=== PATIENT | male | born 1930 | race Caucasian/White ===

== ENCOUNTER 2017-09-02 16:05 | Emergency (ER) | payer MEDICARE, OTHER ==
[~2017-09-02] VITALS: Ht 185.4 cm; Wt 99.8 kg
[~2017-09-02 16:05] MED LIST: ACCUNEB; ACCUNEB SO1.25 MG/1 INH; ACCUNEB0.63 MG/3 IH; ACETAMINOPHEN-1 EAC1 PO; ALBUTEROL SULFATE INH; ALLEGRA180 MG PO; ARIXTRA; AZELASTINE137 MCG/0. NS; BIOFLEX TABLET1 EACH PO; CARDIZEM CD120 MG PO; CELEBREX 200 M200 M1; CENTRUM SILVER1 EAC2 PO; CIPRO500 MG PO; CLEOCIN HCL150 MG PO; CLEOCIN HCL300 MG PO; CO Q-1010 MG PO; COLACE 100 MG100 MG PO; COLACE100 MG; COQ-10100 MG PO; COUMADIN 4 MG TA4 M1 PO; COUMADIN 5 MG TA5 M1 PO; DEXILANT60 MG PO; DOXYCYCLINE 10100 M1 PO; DUONEB 2.5-0.5 M3 ML INH; FLAGYL500 MG PO; FLONASE 0.05%50 MCG NASAL; GLUCOSAMINE &1 EAC1 PO; HYDROCODONE-AP1 EAC6 PO; JANTOVEN7.5 MG PO; KEFLEX500 MG PO; KEPPRA 500 MG500 M1 PO; LANOXIN 0.250.25 M1 PO; LASIX 20 MG TAB20 MG PO; LEVAQUIN 500 M500 M2 PO; LISINOPRIL2.5 MG PO; MEDROLDOSEPACK PO; MUCINEX TA600 MG/TA1 PO; MUCINEX600 MG PO; NEURONTIN 300300 M1; NORCO 5-325 TA1 EACH PO; OSTEO BI-FLEX1 EAC1 PO; OXYCODONE HCL5 M1; OXYIR5 MG; PATANASE30.5 GM INH; PERCOCET 5-3251 EACH; POTASSIUM20 PO; PREDNISONE 10 M10 M1; PREDNISONE 20 M20 M1 PO; PREDNISONE 5 MG5 MG PO; PREDNISONE50 MG PO; PRILOSEC 20 MG20 MG PO; PROVENTIL HFA6.7 G1; PROVENTIL HFA6.7 G1 INH; RESVERATROL250 MG PO; SINGULAIR 10 MG10 M1 PO; SYMBICORT160 MCG/4. INH; TOBRADEX ST EYE5 ML OP; VENTOLIN HFA 1818 GM INH; VENTOLIN HFA INH8 GM INH; VITAMIN B COMP1 EAC7 PO; VITAMIN B-12500 MCG PO; ZANTAC 150MG T150 MG PO; ZOCOR 20 MG TAB20 M1 PO; ZOFRAN ODT4 MG PO; ZPAK PO; [UNRECOGNIZED DRUG - CODE] PO
[2017-09-02] MEDS ORDERED: DOXYCYCLINE 10100 M1 PO (16:37)
[2017-09-02] MEDS ORDERED: VENTOLIN HFA 1818 GM INH (16:38)
[2017-09-02 17:59] LABS: INFLUENZA A ANTIGEN None Detected (None Detect); INFLUENZA B ANTIGEN None Detected (None Detect)
[2017-09-02 18:34] VITALS: BP 144/61
== END 2017-09-02 18:36 | disposition home or self-care (01) ==
LOC: M.ERS 16:05
PROVIDERS: Physician Assistant
DX: R09.82 Postnasal drip (principal); R05 Cough; J02.9 Acute pharyngitis, unspecified; K21.9 Gastro-esophageal reflux disease without esophagitis; I48.91 Unspecified atrial fibrillation; E78.5 Hyperlipidemia, unspecified; E11.9 Type 2 diabetes mellitus without complications; J44.9 Chronic obstructive pulmonary disease, unspecified; Z90.49 Acquired absence of other specified parts of digestive tract; Z88.0 Allergy status to penicillin; Z87.891 Personal history of nicotine dependence

== ENCOUNTER → 2017-10-11 | Outpatient (CLI) | payer MEDICARE, OTHER ==
[~2017-10-11] MED LIST changes: +COZAAR 25 MG TA25 M1 PO
[2017-10-11 12:16] LABS: HEMATOCRIT 44.8 % (42.0-52.0); HEMOGLOBIN 15.4 gm/dL (14.0-18.0); MCH 30.4 pg (26.0-34.0); MCHC 34.4 g/dL (28.0-37.0); MCV 88.3 fL (80.0-100.0); NUCLEATED RBCS 0 /100WBC; PLATELET COUNT* 148 thou/uL (150-400); RBC 5.07 mil/uL (4.50-6.00); RDW-CV 14.9 % (10.5-14.5); WBC 9.7 thou/uL (4.0-11.0)
[2017-10-11 12:24] LABS: CALCIUM 8.5 mg/dL (8.5-10.1); CREATININE 0.8 mg/dL (0.6-1.3); POTASSIUM 4.1 mmol/L (3.5-5.1)
[2017-10-11 12:32] LABS: ABSOLUTE BASOPHILS 0.2 thou/uL (0.0-0.2); ABSOLUTE EOSINOPHILS 0.2 thou/uL (0.0-0.7); ABSOLUTE LYMPHOCYTES 0.6 thou/uL (0.8-5.3); ABSOLUTE MONOCYTES 0.9 thou/uL (0.0-1.2); ABSOLUTE NEUTROPHILS 7.9 thou/uL (1.6-8.1); ATYPICAL LYMPHS 1 %
[2017-10-11 12:33] LABS: HYPOCHROMASIA 1+
[2017-10-11 12:34] LABS: ALBUMIN 3.5 g/dL (3.4-5.0); TOTAL BILIRUBIN 0.8 mg/dL (<0.1-1.0); TOTAL PROTEIN 6.9 g/dL (6.4-8.2)
[2017-10-11 12:36] LABS: PLATELET ESTIMATE DECREASED
== END ==
LOC: M.CT 11:30
PROVIDERS: Family Medicine
DX: K57.30 Diverticulosis of large intestine without perforation or abscess without bleeding (principal); R16.1 Splenomegaly, not elsewhere classified; N28.1 Cyst of kidney, acquired; M41.86 Other forms of scoliosis, lumbar region; M47.896 Other spondylosis, lumbar region; E87.1 Hypo-osmolality and hyponatremia; Z90.49 Acquired absence of other specified parts of digestive tract

== ENCOUNTER 2017-11-17 10:50 | Emergency (ER) | payer MEDICARE, OTHER ==
[~2017-11-17] VITALS: Ht 185.4 cm; Wt 99.8 kg
[~2017-11-17 10:50] MED LIST changes: -COZAAR 25 MG TA25 M1 PO
[2017-11-17 11:42] LABS: HEMATOCRIT 44.5 % (42.0-52.0); HEMOGLOBIN 15.2 gm/dL (14.0-18.0); MCH 30.3 pg (26.0-34.0); MCHC 34.1 g/dL (28.0-37.0); MCV 88.7 fL (80.0-100.0); MPV 7.2 fl. (7.2-11.1); NUCLEATED RBCS 0 /100WBC; PLATELET COUNT* 128 thou/uL (150-400); RBC 5.01 mil/uL (4.50-6.00); RDW-CV 14.9 % (10.5-14.5); WBC 8.3 thou/uL (4.0-11.0)
[2017-11-17 11:54] LABS: CALCIUM 9.1 mg/dL (8.5-10.1); CREATININE 0.9 mg/dL (0.6-1.3); POTASSIUM 4.1 mmol/L (3.5-5.1)
[2017-11-17 12:03] LABS: ALBUMIN 3.6 g/dL (3.4-5.0); TOTAL BILIRUBIN 1.1 mg/dL (<0.1-1.0); TOTAL PROTEIN 6.8 g/dL (6.4-8.2)
[2017-11-17 12:04] LABS: ABSOLUTE BASOPHILS 0.1 thou/uL (0.0-0.2); ABSOLUTE EOSINOPHILS 0.2 thou/uL (0.0-0.7); ABSOLUTE MONOCYTES 0.6 thou/uL (0.0-1.2); ABSOLUTE NEUTROPHILS 6.5 thou/uL (1.6-8.1)
[2017-11-17 12:05] LABS: PLATELET ESTIMATE ADEQUATE
[2017-11-17] MEDS ORDERED: CLEOCIN HCL150 MG PO (12:13)
[2017-11-17 12:21] VITALS: BP 116/53
[2017-11-17 12:29] LABS: INR 2.9; PROTIME 27.9 Seconds (9.20-11.50)
== END 2017-11-17 12:22 | disposition home or self-care (01) ==
LOC: M.ERS 10:50
PROVIDERS: Nurse Practitioner Family
DX: M70.22 Olecranon bursitis, left elbow (principal); J44.9 Chronic obstructive pulmonary disease, unspecified; K21.9 Gastro-esophageal reflux disease without esophagitis; I48.91 Unspecified atrial fibrillation; E78.5 Hyperlipidemia, unspecified; E11.9 Type 2 diabetes mellitus without complications; Z96.653 Presence of artificial knee joint, bilateral; Z88.0 Allergy status to penicillin; Z87.891 Personal history of nicotine dependence; Y93.89 Activity, other specified

== ENCOUNTER 2017-11-20 10:30 | Inpatient (IN) | payer MEDICARE, OTHER ==
[~2017-11-20] VITALS: Ht 182.9 cm; Wt 99.8 kg
[2017-11-20 11:54] VITALS: BP 139/57
[2017-11-20] MEDS ORDERED: VENTOLIN HFA 1818 GM INH (11:56)
[2017-11-20] MEDS ORDERED: FLONASE 0.05%50 MCG NASAL (11:58)
[2017-11-20 12:07] LABS: HEMATOCRIT 42.3 % (42.0-52.0); HEMOGLOBIN 14.6 gm/dL (14.0-18.0); MCH 30.5 pg (26.0-34.0); MCHC 34.6 g/dL (28.0-37.0); MCV 88.1 fL (80.0-100.0); MPV 7.2 fl. (7.2-11.1); NUCLEATED RBCS 0 /100WBC; PLATELET COUNT* 138 thou/uL (150-400); RDW-CV 15.1 % (10.5-14.5); WBC 9.8 thou/uL (4.0-11.0)
[2017-11-20 12:14] LABS: INR 3.1; PROTIME 29.2 Seconds (9.20-11.50)
[2017-11-20 12:20] LABS: CALCIUM 8.3 mg/dL (8.5-10.1); CREATININE 0.8 mg/dL (0.6-1.3); POTASSIUM 4.1 mmol/L (3.5-5.1)
[2017-11-20 12:25] LABS: ALBUMIN 3.3 g/dL (3.4-5.0); TOTAL BILIRUBIN 1.2 mg/dL (<0.1-1.0); TOTAL PROTEIN 6.7 g/dL (6.4-8.2)
--- NOTE | 2017-11-20 12:29 | NUR ---
PATIENT DIRECTLY ADMITTED FROM DR. BRUNO'S OFFICE. PATIENT IS S/P MULTIPLE LEFT ELBOW ASPIRATIONS. PATIENT NOTICED INCREASE IN PAIN/SWELLING AFTER ASPIRATION THAT WAS COMPLETED IN ER ON SAT. ADMISSION HISTORY AND ASSESSMENT CHARTED. PAIN/SWELLING IN LEFT ELBOW. ELBOW DRESSING INTACT-PLACED BY DR. BRUNO JUST PRIOR TO ADMISSION. ORIENTED TO ROOM AND ENVIROMENT. WILL CONTINUE TO MONITOR.
[2017-11-20 12:55] LABS: ABSOLUTE LYMPHOCYTES 0.9 thou/uL (0.8-5.3); ABSOLUTE MONOCYTES 0.1 thou/uL (0.0-1.2); ABSOLUTE NEUTROPHILS 8.8 thou/uL (1.6-8.1)
[2017-11-20 12:56] LABS: ANISOCYTOSIS 1+; PLATELET ESTIMATE DECREASED; POIKILOCYTOSIS 1+
[2017-11-20 16:08] VITALS: BP 138/77
--- NOTE | 2017-11-20 16:27 | NUR ---
PATIENT REMAINS ALERT AND ORIENTED. PAIN IN LEFT ELBOW/WRIST CONTROLLED WITH FENTANYL. IVF INFUSING ORDERED. IV VANC STARTED. AMBULATES AD GISSEL. POST PROCEDURE DRESSING C/D/I. TOLERATING MEALS. ID CONSULTED. CALL LIGHT WITHIN REACH. WILL CONTINUE TO MONITOR.
[2017-11-20 21:20] VITALS: BP 149/74
[2017-11-21 04:05] LABS: ABSOLUTE EOSINOPHILS 0.1 thou/uL (0.0-0.7); ABSOLUTE LYMPHOCYTES 0.7 thou/uL (0.8-5.3); ABSOLUTE MONOCYTES 0.6 thou/uL (0.0-1.2); ABSOLUTE NEUTROPHILS 5.5 thou/uL (1.6-8.1); BASOPHILS 0.6 %; EOSINOPHILS 1.3 %; HEMOGLOBIN 13.9 gm/dL (14.0-18.0); LYMPHOCYTES 10.6 %; MCH 30.3 pg (26.0-34.0); MCHC 34.7 g/dL (28.0-37.0); MCV 87.2 fL (80.0-100.0); MPV 7.8 fl. (7.2-11.1); NUCLEATED RBCS 0 /100WBC; PLATELET COUNT* 127 thou/uL (150-400); POLYS 79.5 %; RBC 4.59 mil/uL (4.50-6.00); WBC 6.9 thou/uL (4.0-11.0)
[2017-11-21 04:11] LABS: ALBUMIN 2.9 g/dL (3.4-5.0); CALCIUM 8.1 mg/dL (8.5-10.1); CREATININE 0.7 mg/dL (0.6-1.3); POTASSIUM 3.9 mmol/L (3.5-5.1); TOTAL BILIRUBIN 0.9 mg/dL (<0.1-1.0); TOTAL PROTEIN 6.1 g/dL (6.4-8.2)
--- NOTE | 2017-11-21 04:49 | NUR ---
PATIENT HAS RESTED WELL THROUGHOUT THE NIGHT WITHOUT ANY ISSUES. PAIN WELL CONTROLLED. PATIENT IS UP WITH ASSIST X 2 WITH GAITBELT AND WALKER TO THE [facility]. DRESSING TO RIGHT KNEE IS C/D/I, AMY HOSE, POLAR CARE AND SCD'S IN PLACE. IV IN LEFT FOREARM-1/2 NS @ 75ML/HR. IV ABT GIVEN WITHOUT ANY ADVERSE SIDE EFFECTS NOTED. PATIENT REFUSED CPM BEFORE BEDTIME D/T WANTING TO GO TO SLEEP. WILL ATTEMPT TO PUT PATIENT ON CPM THIS AM. PATIENT INSTRUCTED TO USE CALL LIGHT WHEN NEEDING ASSISTANCE. HOURLY ROUNDS MADE. WILL CONTINUE WITH PLAN OF CARE AND NURSING TO MONITOR.
--- NOTE | 2017-11-21 04:57 | NUR ---
PATIENT HAS SLEPT ON AND OFF DURING THE NIGHT, BUT HAS BEEN SOMEWHAT RESTLESS. PAIN MEDICATION GIVEN ORDERED AND CHARTED. LEFT ARM/HAND IS SWOLLEN. ARM ELEVATED ON PILLOW AND ICE PACK GIVEN TO HELP WITH SWELLING AND PAIN. PATIENT IS UP AD-GISSEL AND STEADY. VSS ON RA. DRESSING TO LEFT ARM IN PLACE. IV IN RIGHT HAND-NS @ 50ML/HR. IV VANCO GIVEN WITHOUT ANY ADVERSE SIDE EFFECTS NOTED. PATIENT INSTRUCTED TO USE CALL LIGHT WHEN NEEDING ASSISTANCE. HOURLY ROUNDS MADE. WILL CONTINUE WITH PLAN OF CARE AND NURSING TO MONITOR.
[2017-11-21 08:05] VITALS: BP 141/75
--- NOTE | 2017-11-21 09:56 | CON ---
[address] [address] CONSULTATION Name: DAVIN CAAL SR Room: [address] ADM IN M.R.#: [id number] Admission: 11/20/17 Attend Phys: Shreyas Pires MD Discharge: Date of : 31 Report #: [id number] THIS REPORT FOR: //name// CC: Shreyas Matt DATE OF SERVICE: 11/20/2017 ORTHOPEDIC CONSULTATION HISTORY OF PRESENT ILLNESS: An 87-year-old gentleman who was seen in my office today and I called over to Dr. Pires to potentially admit him for septic bursa of his left elbow. This gentleman has been seen and followed in our office for several weeks. He has had increasing pain despite conservative care, measures and aspirations. The gentleman did go to the Emergency Room over the weekend and appropriately had some blood work done, aspirated a large amount of fluid from it at that stage and then last night or yesterday, saw my partner, Dr. Catalan again. He saw him for increasing pain and aspirated his elbow and he presented to my office again today with the same. The gentleman has been on some doxycycline. He feels like he is not getting any better. HE DOES HAVE AN ALLERGY TO PENICILLIN, IT CAUSES STIFF JOINTS; this is what he says primarily. He has a long medication list, it is included on the chart; and it is noted his medical history is numerous bronchitis, cellulitis, diabetes mellitus type 2 and COPD. He has a history of diverticulitis and he does have history of sore throat. 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 MEDICATIONS: This gentleman has had medications currently clindamycin actively and currently, he is on vancomycin. He is a chronic Coumadin therapy patient as well for atrial fibrillation. PAST SURGICAL HISTORY: He has had numerous surgeries. He has had angioplasty. He has had a CABG, testicular surgery, cholecystectomy, right and left hip and knee arthroplasties. SOCIAL HISTORY: This gentleman does exhibit socially. No smoke or alcohol consumption history. REVIEW OF SYMPTOMS: Musculoskeletal, he complains of discomfort in this left elbow region. Otherwise, his 10-point review is relatively benign. LABORATORY DATA: The patient does exhibit to show currently he has white blood cell count of 9800. He does have platelets of 138,000. His neutrophil count on the CBC was high at 8.8. Currently, that is [place] [address] CONSULTATION Name: DAVIN CAAL Room: [address]#: [id number] Admission: 11/20/17 Attend Phys: Shreyas Pires MD Discharge: Date of : 31 Report #: [id number] this early stage. PHYSICAL EXAMINATION: VITAL SIGNS: He does demonstrate his vitals to show the temperature of 36.4, BP 139/57, respiratory rate is 20 and his pulse is 68. GENERAL: A very pleasant 87-year-old gentleman. HEENT: He is normocephalic. His sclerae are white. Mucous membranes are moist. NEUROLOGIC: Appropriate affect and judgement does demonstrate. LUNGS: On his clinical presentation, he demonstrates no audible wheezes detected. ABDOMEN: Obese, soft. EXTREMITIES: He demonstrates left elbow has a bursal sac that is evident. There is warmth about this area. I did aspirate it in the office today. Those were sent down to the lab for cultures and gram stain. He demonstrates forearm tenderness as well as tenderness across his left wrist region. X-ray is pending on that and fingers move well in flexion and extension, but they do show some edema as well. He does demonstrate to show clinically otherwise, he does have no findings like this on the right arm. The radiograph in the office showed arthritis, but no destructive process changes. IMPRESSION: The patient's impression is consistent with septic olecranon bursitis of the left elbow region with remote possibility of sepsis. Appropriate blood cultures, antibiotics and aspiration evaluation will be done on this left elbow. I told him it is too early to tell if this will be a surgical or non-surgical type of problem that could go either way. He does understand these are very stubborn to help and get rid of, though. The patient is comfortable with the way outlined. He is very pleasant during our conversation this afternoon. It is my pleasure seeing and taking care of him. I will follow him. <ELECTRONICALLY SIGNED> By: Denilson Kaiser DO 11/21/17 0956 1323 1419Denilson Kaiser DO /sami
[2017-11-21 12:43] VITALS: BP 132/82
--- NOTE | 2017-11-21 14:40 | NUR ---
Agree with student nurse, Nicole Ordoñez's documentation
--- NOTE | 2017-11-21 14:43 | NUR ---
INFORMED DR. AVALOS OF MRI RESULTS.
[2017-11-21 15:08] LABS: INR 2.2; PROTIME 21.4 Seconds (9.20-11.50)
[2017-11-21 15:50] VITALS: BP 119/68
--- NOTE | 2017-11-21 17:50 | NUR ---
PATIENT REMAINS ALERT AND ORIENTED. ANXIOUS. UP AD GISSEL. LEFT ARM SWELLING DECREASED. ELEVATED ON MULTIPLE PILLOWS. DR. BRUNO REMOVED DRESSING. NO DRAINAGE. MRI COMPLETED. VANC AND DOXYCYCLINE GIVEN. BM THIS MORNING. ALTERNATING HYDROCODONE AND FENTANYL FOR ADEQUATE PAIN RELIEF. CALL LIGHT WITHIN REACH. WILL CONTINUE TO MONITOR.
[2017-11-21 19:45] VITALS: BP 129/63
--- NOTE | 2017-11-22 04:36 | NUR ---
PATIENT HAS REMAINED ALERT AND ORIENTED X 4 THROUGHOUT THE SHIFT AND RESTING AT INTERVALS. NOTED COUGH FOR 30 MINUTES AFTER HS BREATHING TREATMENT. PATIENT STATES THIS IS USUAL AT TIMES FOR HIM DUE TO HIS COPD. IV ANTIBIOTICS PER ORDERS. LEFT ARM REWRAPPED LOOSELY WITH GAUZE AND BO WRAP. PATIENT KEPT LEFT ARM ELEVATED OVERNIGHT. SOME IMPROVEMENT IN EDEMA AND PAIN THIS SHIFT. MEDICATED FOR PAIN X 3 OF THIS WRITING. VITAL SIGNS STABLE. CONTINUE TO MONITOR.
[2017-11-22 05:00] LABS: ABSOLUTE EOSINOPHILS 0.1 thou/uL (0.0-0.7); ABSOLUTE LYMPHOCYTES 0.8 thou/uL (0.8-5.3); ABSOLUTE MONOCYTES 0.7 thou/uL (0.0-1.2); ABSOLUTE NEUTROPHILS 6.3 thou/uL (1.6-8.1); BASOPHILS 0.6 %; EOSINOPHILS 1.5 %; HEMATOCRIT 37.9 % (42.0-52.0); HEMOGLOBIN 12.9 gm/dL (14.0-18.0); LYMPHOCYTES 10.3 %; MCH 29.9 pg (26.0-34.0); MCHC 34.1 g/dL (28.0-37.0); MCV 87.9 fL (80.0-100.0); MONOCYTES 9.3 %; MPV 8.2 fl. (7.2-11.1); NUCLEATED RBCS 0 /100WBC; PLATELET COUNT* 117 thou/uL (150-400); POLYS 78.3 %; RBC 4.31 mil/uL (4.50-6.00); RDW-CV 14.9 % (10.5-14.5)
[2017-11-22 05:14] LABS: ALBUMIN 2.8 g/dL (3.4-5.0); CALCIUM 7.6 mg/dL (8.5-10.1); CREATININE 0.8 mg/dL (0.6-1.3); POTASSIUM 3.9 mmol/L (3.5-5.1); TOTAL PROTEIN 5.3 g/dL (6.4-8.2)
[2017-11-22 08:00] VITALS: BP 145/75
[2017-11-22 08:17] LABS: INR 1.8; PROTIME 17.4 Seconds (9.20-11.50)
--- NOTE | 2017-11-22 10:51 | CON ---
[address] [address] CONSULTATION Name: DAVIN CAAL SR Room: [address] ADM IN M.R.#: [id number] Admission: 11/20/17 Attend Phys: Shreyas Pires MD Discharge: Date of : 31 Report #: [id number] THIS REPORT FOR: //name// CC: Shreyas Kaiser Kira Shaka DATE OF SERVICE: 11/21/2017 INFECTIOUS DISEASE CONSULTATION: ATTENDING PHYSICIAN: Shreyas Pires M.D. REASON FOR EVALUATION: Left upper extremity septic olecranon bursitis. HISTORY OF PRESENT ILLNESS: Chart reviewed, patient examined. 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 It was treated with corticosteroids and it improved; however, early to mid October had recurrence was evaluated in the Emergency Room did undergo aspiration of the site. Cultures are sterile thus far. He was given a course of antibiotics. However, in spite of that clinically worsened. Seen as an outpatient and was directed to admission. Throughout the most of the course of the illness, it was localized to the elbow however over the course of the last few days, it extended distally down the arm and the wrist between became severely painful has not had significant recent fevers. Did admit some chills as well as mild anorexia and pulmonary or gastrointestinal related complaints, not aware of any antecedent injury. Did an imaging of the elbow, show osteoarthritis involving the elbow joint, swelling of the olecranon bursa. Wrist x-ray, chondrocalcinosis degenerative arthrosis. MRI showed a large fluid collection extending along the posterior lateral aspect of the elbow into the forearm with surrounding soft tissue edema and cellulitis. There is question of a soft tissue infection with possible underlying abscess measuring 12 x 2.3 x 6.5 cm. There is a large joint effusion in the elbow with degenerative change. No acute bony abnormality. He was empirically started on vancomycin. On questioning, he denies any particular exposure history, does have several animals, does not believe he had any bites, [place], is not encephalopathic. ALLERGIES: PENICILLIN WHICH CAUSES STIFF JOINTS. CURRENT MEDICATIONS: Include fentanyl, hydrocodone, montelukast, vancomycin, atorvastatin, budesonide, albuterol, pantoprazole, and cyanocobalamin. PAST MEDICAL HISTORY: Bilateral total knee replacements, cholecystectomy, [place] [address] CONSULTATION Name: DAVIN CAAL SR Room: [address] IN ..#: [id number] Admission: 11/20/17 Attend Phys: Shreyas Pires MD Discharge: Date of : 31 Report #: [id number] known coronary artery disease with angioplasty or coronary bypass grafting 2 occasions, COPD, reflux, atrial fibrillation, hyperlipidemia, diabetes mellitus type 2. SOCIAL HISTORY: Former smoker. No ethanol. FAMILY HISTORY: Noncontributory. REVIEW OF SYSTEMS: As above. PHYSICAL EXAMINATION: GENERAL: In moderate distress secondary to the pain. He is quite tenuous with his left upper extremity, appears reasonably nourished. VITAL SIGNS: Temperature 97.5, pulse 66, respirations 14, blood pressure 132/82. SKIN: Warm, dry, no rashes. HEENT: Unremarkable. NECK: Supple. LUNGS: Diminished breath sounds. HEART: Regular. Borderline bradycardic, I do not appreciate a murmur. ABDOMEN: Soft, mildly distended. There are no peritoneal signs. EXTREMITIES: Left upper extremity is clear, moderate inflammatory signs noted to above the elbow distal to involve the wrist and hand and generalized swelling. There is quite a bit of tenderness over the olecranon. There is a contused area which presumably is a fresh blood in the bursa, extends posteriorly. RECTAL: Deferred. LABORATORY DATA: Cultures described from the elbow sterile thus far. There are some RBCs noted at that site, although no white cells. Blood cultures are sterile thus far. CRP elevated at 58.9. CBC: White count 6.9, H and H 13.9 and 40.0, platelets of 127. Electrolytes: Sodium 136, potassium 3.9, chloride 103, bicarbonate is 25, anion gap of 13, creatinine 0.7, glucose of 108. LFTs are unremarkable. Albumin of 2.9, total protein 6.1. Lactic acid 0.8. The isolation of the culture from the elbow dated 11/17/2017 showed WBC, lack of white cells and no organisms seen and this culture is sterile thus far. ASSESSMENT AND PLAN: Inflammatory process with a focal fluid collection involving the left forearm, it is somewhat puzzling, history of spontaneous collection of fluid either in the elbow joint proper perhaps the bursa and tapped 3 times there is no evidence of culture, it raises question of a noninfectious or an atypical organism. We will add tetracycline, perhaps do some serologies. Discussed with the orthopedic surgery, I think he will benefit from evacuation of the fluid as noted in MRI. It [place] [address] CONSULTATION Name: DAVIN CAAL Room: [address] IN .R.#: [id number] Admission: 11/20/17 Attend Phys: Shreyas Pires MD Discharge: Date of : 31 Report #: [id number] this was primary joint tissue or bursa or soft tissue. We will await pending results. <ELECTRONICALLY SIGNED> By: Yung Roman MD 11/22/17 1051 1417 1819Jotopher Roman MD /nt
--- NOTE | 2017-11-22 11:53 | NUR ---
LATE ENTRY FOR 11/21 1600-PT.SAID HE LIVES WITH HIS . HE IS NORMALLY INDEPENDENT AND ACTIVE AT HOME. HE HAS A WALKER FROM WHEN HE HAD HIS KNEES REPLACED. HE LOVES TO PLAY GOLF. HAS HX OF BUT CANT REMEMBER NAME OF AGENCY. HE WAS CONCERNED HIS DRMarlineHAD TOLD HIM HE WOULD COME BACK TO REWRAP HIS ARM AND HAS NOT. NURSING SAID THEY HAVE TOLD PT.MANY TIMES RESIDENT WILL BE BACK SOON TO RE WRAP HIS ARM. INFORMED PT. CM WILL FOLLOW.
--- NOTE | 2017-11-22 13:57 | NUR ---
CONSULTED FOR IV ACCESS. AFTER REVIEW OF THE CHART AND DISCUSSION WITH PRIMARY RN MIDLINE WAS CHOOSEN. SPOKE WITH PT REGUARDING RISK AND BENEFIT. VOICED UNDERSTANDING AND AGREED. SINGLE LUMAN PWER MIDLINE PLACED PER HOSPITAL POLICY. RIGHT BASILIC IDENTIFIED AND NOTED TO BE WIDLEY PATENT. LINE TRIMMED TO 15CM AND ADVANCED TO HUB. GOOD BRISK BLOOD RETURN NOTED AND FLUSHED WITH EASE. LINE SECURED AND RELEASED FOR USE. PRIMARY NURSING AWARE.
[2017-11-22 16:03] VITALS: BP 141/77
--- NOTE | 2017-11-22 18:18 | NUR ---
PATIENT REMAINED ALERT AND ORIENTED X'S 4. VITAL SIGNS AND SPO2 STABLE. IV WENT BAD, NEW IV COULD NOT BE STARTED, 15 CM MIDLINE IV PLACED ON RIGHT UPPER ARM. CLEAN, ANTIBIOTICS CURRENTLY RUNNING. PAIN WELL CONTROLLED WITH PAIN MEDS. REDRESSED LEFT ARM, 1+ EDEMA ON WRIST AND HAND. RECIEVED BREATHING TREATMENTS. SURGERY TOLD PATIENT THEY WILL NOT BE DOING SURGERY AT THE MOMENT, THEY WANT TO WATCH TO SEE IF THE ANTIBIOTICS WILL RESOLVE THE ISSUE. TOLERATED DIET, NO NAUSEA AND VOMITING. COMPLETED HOURLY ROUNDING. CALL LIGHT WITHIN REACH. WILL CONTINUE TO MONITOR.
[2017-11-22 20:00] VITALS: BP 143/56
[2017-11-23 04:51] LABS: INR 1.5; PROTIME 14.4 Seconds (9.20-11.50)
--- NOTE | 2017-11-23 05:12 | NUR ---
ASSUMED PATIENT CARE AT 2015. PATIENT ALERT AND ORIENTED TIMES FOUR. MACHINE CLEANER COMLETED DOCUMENTED. MINOR COMLAINTS OF PAIN, CONTROLLED WITH ORAL PAIN MEDICATION. ABLE TO TRANSFER TO [facility] WITH MOD ASSISST O ONE, GAIT BELT AND WALKER. FALL RISK PRECAUTIONS IN PLACE. POLAR PACK IN PLACE. HOURLY ROUNDING COMPLETED DOCUMENTED.
[2017-11-23 08:12] VITALS: BP 141/81
[2017-11-23 09:59] LABS: ABSOLUTE EOSINOPHILS 0.1 thou/uL (0.0-0.7); ABSOLUTE LYMPHOCYTES 0.5 thou/uL (0.8-5.3); ABSOLUTE MONOCYTES 0.3 thou/uL (0.0-1.2); ABSOLUTE NEUTROPHILS 4.2 thou/uL (1.6-8.1); BASOPHILS 0.9 %; EOSINOPHILS 1.9 %; HEMATOCRIT 38.5 % (42.0-52.0); HEMOGLOBIN 12.8 gm/dL (14.0-18.0); LYMPHOCYTES 8.9 %; MCH 29.9 pg (26.0-34.0); MCHC 33.3 g/dL (28.0-37.0); MCV 89.8 fL (80.0-100.0); MONOCYTES 6.5 %; MPV 7.6 fl. (7.2-11.1); NUCLEATED RBCS 0 /100WBC; PLATELET COUNT* 128 thou/uL (150-400); POLYS 81.8 %; RBC 4.29 mil/uL (4.50-6.00); RDW-CV 14.6 % (10.5-14.5); WBC 5.2 thou/uL (4.0-11.0)
[2017-11-23 10:10] LABS: ANA INTERPRETATION Negative (Negative)
[2017-11-23 10:45] LABS: ALBUMIN 2.8 g/dL (3.4-5.0); CALCIUM 8.3 mg/dL (8.5-10.1); CREATININE 0.8 mg/dL (0.6-1.3); TOTAL BILIRUBIN 0.7 mg/dL (<0.1-1.0); TOTAL PROTEIN 6.1 g/dL (6.4-8.2)
--- NOTE | 2017-11-23 15:52 | NUR ---
MET WITH PT. HE HOPES TO GO HOME SOON. PER 'S NOTE,PLAN TRANSITION TO ORAL ANTIBIOTICS. IF HH NEEDED PT.SAID HE WOULD BE AGREEABLE. HE WOULD CHOSE [facility].
[2017-11-23 16:00] VITALS: BP 143/77
--- NOTE | 2017-11-23 20:53 | NUR ---
ASSUMED PT CARES AT 0700. PT IN BED, BED IN LOW LOCKED POSITION, FALL PRECAUTIONS IN PLACE. CALL BUTTON AND PERSONAL ITEMS IN PT REACH. PT A&O X4, OCC. CONFUSED, HRRR PER AUSCULTATION, LCTAB, VSS ON RA. AFEBRILE, PERRLA, LEFT ARM SWOLLEN/PAINFUL. DR. BRUNO OFFICE CALLED R/T INCREASED EDEMA IN LEFT ARM. ARM REMAINS WRAPPED. PT UP INDEPENDENT, RIGHT UE CENTRAL LINE SINGLE LUMEN PATENT TO FLUIDS. IV ABT TOLERATED, NO AVR. ICE PACKS ON LEFT ARM, LEFT ARM RAISED ON PILLOWS, PT ENCOURAGED TO MOVE ARM MORE PER DR. BRUNO'S OFFICE. OXYCODONE SOMEWHAT EFFECTIVE FOR PAIN RELIEF. HOURLY ROUNDING COMPLETED. REPORT TO SUPERVISOR SANDBLASTER FOR CONTINUED CARES. PT REMAINS STABLE AT SHIFT CHANGE.
[2017-11-23 21:30] VITALS: BP 144/79
[2017-11-24 04:23] VITALS: BP 142/57
[2017-11-24 04:43] LABS: INR 1.3; PROTIME 12.2 Seconds (9.20-11.50)
[2017-11-24 04:44] LABS: CALCIUM 8.6 mg/dL (8.5-10.1); CREATININE 0.7 mg/dL (0.6-1.3); POTASSIUM 4.1 mmol/L (3.5-5.1); TOTAL BILIRUBIN 0.7 mg/dL (<0.1-1.0); TOTAL PROTEIN 6.3 g/dL (6.4-8.2)
[2017-11-24 05:01] LABS: HEMATOCRIT 37.9 % (42.0-52.0); HEMOGLOBIN 13.3 gm/dL (14.0-18.0); MCH 30.5 pg (26.0-34.0); MCV 87.2 fL (80.0-100.0); MPV 7.4 fl. (7.2-11.1); NUCLEATED RBCS 0 /100WBC; PLATELET COUNT* 140 thou/uL (150-400); RBC 4.35 mil/uL (4.50-6.00); RDW-CV 14.9 % (10.5-14.5); WBC 7.4 thou/uL (4.0-11.0)
--- NOTE | 2017-11-24 05:30 | NUR ---
ALERT AND ORIENTED X4. PO PAIN MEDICATION GIVEN AND HELPFUL FOR LEFT ARM PAIN. UP TO BATHROOM WITH STAND BY ASSIST. LEFT ARM AND HAND SWOLLEN. ELEVATED ON PILLOW. BO WRAP REMAINS INTACT OVER LEFT ARM. CONTINUES ON IV ANTIBIODICS. CALL LIGHT WITHIN REACH.
[2017-11-24 06:15] LABS: ABSOLUTE LYMPHOCYTES 0.5 thou/uL (0.8-5.3); ABSOLUTE MONOCYTES 0.1 thou/uL (0.0-1.2); ABSOLUTE NEUTROPHILS 6.8 thou/uL (1.6-8.1); ATYPICAL LYMPHS 1 %; PLATELET ESTIMATE DECREASED
[2017-11-24 08:11] VITALS: BP 158/84
[2017-11-24 16:00] VITALS: BP 138/75
--- NOTE | 2017-11-24 16:33 | NUR ---
ASSUMED CARE OF PATIENT ATER MORNING REPORT. ALERT AND ORIENTED X4. ASSESSMENT COMPLETED AND CHARTED. VSS ON ROOM AIR. ANTIBIOTICS INFUSED ORDERED. PATIENTS PAIN HAS BEEN MANAGED WITH PAIN MEDICATION. PATIENTS ARM HAS BEEN UNWRAPPED AND ELEVATED ON PILLOWS TODAY. PATIENT UP AD GISSEL IN ROOM AND WALKS THE UNIT OCCASIONALLY, HE HAS ALSO SHOWERED TODAY. ORTHO HAS ORDERED AN EDEMA GLOVE TO BE WORN BY THE PATIENT BUT HE WOULD PREFER NOT TO HAVE TO WEAR THIS. HOURLY ROUNDS HAVE BEEN MAINTAINED. CALL LIGHT IS WITHIN REACH. NURSING WILL CONTINUE TO MONITOR.
[2017-11-24 20:30] VITALS: BP 148/83
--- NOTE | 2017-11-25 04:34 | NUR ---
PATIENT HAS REMAINED ALERT AND ORIENTED X 4 THROUGHOUT THE SHIFT AND RESTING QUIETLY ON HOURLY ROUNDS. MIDLINE AT FULL FUNCTION AFTER CATH YOUSIF. IV ANTIBIOTICS PER ORDERS. VITAL SIGNS STABLE. PATIENT HAS STATED THAT PAIN AND EDEMA LEFT ARM IMPROVED. LUE HAS BEEN ELEVATED ON THREE PILLOWS TONIGHT. CONTINUE TO MONITOR.
[2017-11-25 05:35] LABS: ABSOLUTE BASOPHILS 0.1 thou/uL (0.0-0.2); ABSOLUTE EOSINOPHILS 0.1 thou/uL (0.0-0.7); ABSOLUTE LYMPHOCYTES 0.8 thou/uL (0.8-5.3); ABSOLUTE MONOCYTES 0.5 thou/uL (0.0-1.2); ABSOLUTE NEUTROPHILS 4.7 thou/uL (1.6-8.1); BASOPHILS 1.1 %; EOSINOPHILS 2.4 %; HEMATOCRIT 38.2 % (42.0-52.0); HEMOGLOBIN 12.9 gm/dL (14.0-18.0); LYMPHOCYTES 13.3 %; MCHC 33.7 g/dL (28.0-37.0); MCV 88.9 fL (80.0-100.0); MONOCYTES 7.8 %; MPV 6.9 fl. (7.2-11.1); NUCLEATED RBCS 0 /100WBC; PLATELET COUNT* 142 thou/uL (150-400); POLYS 75.4 %; RBC 4.29 mil/uL (4.50-6.00); RDW-CV 14.8 % (10.5-14.5); WBC 6.2 thou/uL (4.0-11.0)
[2017-11-25 05:56] LABS: ALBUMIN 2.9 g/dL (3.4-5.0); CALCIUM 8.4 mg/dL (8.5-10.1); CREATININE 0.8 mg/dL (0.6-1.3); POTASSIUM 4.1 mmol/L (3.5-5.1); TOTAL BILIRUBIN 0.6 mg/dL (<0.1-1.0); TOTAL PROTEIN 6.1 g/dL (6.4-8.2)
[2017-11-25 07:55] LABS: INR 1.2; PROTIME 11.9 Seconds (9.20-11.50)
[2017-11-25 09:00] VITALS: BP 138/71
--- NOTE | 2017-11-25 12:44 | NUR ---
ASSUMED PT CARE AT 0700 PT IS ALERT AND ORIENTED X 4 PT PT DENIES PAIN OR SOA PT LEFT ELBOW IS SWOLLEN RESTING ON PILLOW ELEVATED PT HAS MIDLINE IS RECEIVING ANTIBIOTICS, PT IS UP AD GISSEL PT IS NOT A FALL RISK, PT IS PLEASANT AND COOPERATIVE, WILL CONTINUE TO MONITOR
[2017-11-25 16:00] VITALS: BP 153/86
[2017-11-25 21:40] VITALS: BP 169/85
[2017-11-26 00:43] VITALS: BP 145/68
--- NOTE | 2017-11-26 04:57 | NUR ---
ALERT AND ORIENTED X4. UP AD GISSEL TO BATHROOM WITHOUT DIFFICULTY. CONTINUES TO RECEIVE IV ANTIBIODICS WITHOUT DIFFICULTY OR ADVERSE SIDE EFFECTS . RECEIVING BREATHING TREATMENTS. LEFT ARM AND HAND SWELLING HAS DECREASED ALOT OVER THE LAST COUPLE OF DAYS. PO PAIN MEDICATION GIVEN X1 AND HELPFUL.
[2017-11-26 05:49] LABS: INR 1.2; PROTIME 11.5 Seconds (9.20-11.50)
--- NOTE | 2017-11-26 07:15 | NUR ---
CHANGE OF SHIFT, BEDSIDE REPORT GIVEN ASSUMED PATIENT CARE PATIENT SEEN AT BEDSIDE, IN BED RESTING WITH NO REQUESTS
--- NOTE | 2017-11-26 07:58 | NUR ---
ORDER RECEIVED FOR "EVALUATE AND FIT WITH EDEMA GLOVE". PLEASE SEE PHYSICAL THERAPY NOTE. P.T. ISSUING.
[2017-11-26 08:00] VITALS: BP 141/68
[2017-11-26 12:46] VITALS: BP 141/68
--- NOTE | 2017-11-26 14:00 | NUR ---
PT.DISCHARGING TODAY. HAD TOLD THEY DID NOT WANT HH BUT CHANGED THEIR MINDS. THEY CHOSE [facility] . NOTIFIED JACK/[facility] AND FAXED DISCHARGE ORDERS TO HER.
--- NOTE | 2017-11-26 14:11 | NUR ---
PATIENT DCD TO HOME WITH H/H DC INFORMATION GIVEN AND ACKNOLEDGED AND SIGNED COPIES GIVEN IV MIDLINE REMOVED PERSONAL BELONGINGS RETURNED PATIENT ASSSITED OUT VIA WC TO WAITING CAR
== END 2017-11-26 14:16 | disposition home or self-care (01) | DRG 558 ==
LOC: M.ORTHSURG 10:30
PROVIDERS: Specialist; ADMIT Internal Medicine
PROC: 05HB33Z Insertion of Infusion Device into Right Basilic Vein, Percutaneous Approach (ICD-10-PCS; principal; 2017-11-20)
DX: M71.122 Other infective bursitis, left elbow (principal); R65.10 Systemic inflammatory response syndrome (SIRS) of non-infectious origin without acute organ dysfunction; E44.0 Moderate protein-calorie malnutrition; E87.1 Hypo-osmolality and hyponatremia; L03.114 Cellulitis of left upper limb; E86.0 Dehydration; Z96.653 Presence of artificial knee joint, bilateral; Z96.643 Presence of artificial hip joint, bilateral; I25.10 Atherosclerotic heart disease of native coronary artery without angina pectoris; J44.9 Chronic obstructive pulmonary disease, unspecified; K21.9 Gastro-esophageal reflux disease without esophagitis; S60.212A Contusion of left wrist, initial encounter; I48.91 Unspecified atrial fibrillation; E78.5 Hyperlipidemia, unspecified; E11.9 Type 2 diabetes mellitus without complications; Z87.891 Personal history of nicotine dependence; Z88.0 Allergy status to penicillin; Z79.01 Long term (current) use of anticoagulants; Z79.899 Other long term (current) drug therapy; X58.XXXA Exposure to other specified factors, initial encounter; Y93.89 Activity, other specified; Y92.89 Other specified places as the place of occurrence of the external cause; Y99.8 Other external cause status; Z95.1 Presence of aortocoronary bypass graft; Z90.49 Acquired absence of other specified parts of digestive tract; Z95.5 Presence of coronary angioplasty implant and graft; Z68.29 Body mass index [BMI] 29.0-29.9, adult

== ENCOUNTER → 2018-03-04 | Outpatient (CLI) | payer MEDICARE, OTHER ==
[~2018-03-04] MED LIST changes: +COZAAR 25 MG TA25 M1 PO
== END ==
LOC: M.RAD 10:43
DX: R05 Cough (principal); R06.02 Shortness of breath

== ENCOUNTER → 2018-04-23 | Outpatient (CLI) | payer MEDICARE, OTHER | LOC: M.RAD 10:40 | DX: M47.816 Spondylosis without myelopathy or radiculopathy, lumbar region (principal); J44.9 Chronic obstructive pulmonary disease, unspecified ==

== ENCOUNTER 2018-07-08 07:36 | Inpatient (IN) | payer MEDICARE, OTHER ==
[~2018-07-08] VITALS: Ht 185.4 cm; Wt 101.2 kg
[~2018-07-08 07:36] MED LIST changes: -COZAAR 25 MG TA25 M1 PO
[2018-07-08 07:40] VITALS: BP 174/95
[2018-07-08 08:37] LABS: ABSOLUTE BASOPHILS 0.1 thou/uL (0.0-0.2); ABSOLUTE EOSINOPHILS 0.1 thou/uL (0.0-0.7); ABSOLUTE LYMPHOCYTES 0.9 thou/uL (0.8-5.3); ABSOLUTE MONOCYTES 0.4 thou/uL (0.0-1.2); ABSOLUTE NEUTROPHILS 4.6 thou/uL (1.6-8.1); BASOPHILS 1.1 %; EOSINOPHILS 1.7 %; HEMATOCRIT 45.6 % (42.0-52.0); HEMOGLOBIN 15.2 gm/dL (14.0-18.0); LYMPHOCYTES 15.1 %; MCH 29.6 pg (26.0-34.0); MCHC 33.3 g/dL (28.0-37.0); MONOCYTES 6.1 %; MPV 7.9 fl. (7.2-11.1); NUCLEATED RBCS 0 /100WBC; PLATELET COUNT* 142 thou/uL (150-400); RBC 5.14 mil/uL (4.50-6.00); RDW-CV 14.8 % (10.5-14.5)
[2018-07-08 08:38] LABS: MCV 88.7 fL (80.0-100.0)
[2018-07-08 08:39] LABS: URINE BILIRUBIN NEGATIVE (Negative); URINE BLOOD NEGATIVE (Negative); URINE CLARITY CLEAR; URINE COLOR YELLOW; URINE GLUCOSE-RANDOM NEGATIVE (Negative); URINE KETONES NEGATIVE (Negative); URINE LEUKOCYTES-REFLEX NEGATIVE (Negative); URINE NITRITE-REFLEX NEGATIVE (Negative); URINE PROTEIN NEGATIVE (Negative); URINE SPECIFIC GRAVITY 1.015 (1.005-1.030); URINE UROBILINOGEN 0.2 E.U./dl (0.2-1.0)
[2018-07-08 08:50] LABS: WBC ND thou/uL (4.0-11.0)
[2018-07-08 08:51] LABS: RBC ND mil/uL (4.50-6.00)
[2018-07-08 08:52] LABS: ALBUMIN 3.7 g/dL (3.4-5.0); ALKALINE PHOSPHATASE 70 U/L (46-116); ANION GAP 7 mmol/L (7-16); BUN 11 mg/dL (7-18); CALCIUM 8.9 mg/dL (8.5-10.1); CHLORIDE 100 mmol/L (98-107); CO2 28 mmol/L (21-32); CREATININE 0.9 mg/dL (0.6-1.3); GLUCOSE 117 mg/dL (70-99); NT-PRO BRAIN NAT PEPTIDE 456 pg/mL (<300); SGOT 27 U/L (15-37); SGPT 32 U/L (30-65); SODIUM 135 mmol/L (136-145); TOTAL BILIRUBIN 0.7 mg/dL (<0.1-1.0); TROPONIN-I LEVEL <0.06 ng/mL (<0.06)
[2018-07-08 08:52] LABS: HEMOGLOBIN ND gm/dL (14.0-18.0)
[2018-07-08 08:53] LABS: HEMATOCRIT ND % (42.0-52.0)
[2018-07-08 08:57] LABS: MCH ND pg (26.0-34.0); MCV ND fL (80.0-100.0)
[2018-07-08 08:58] LABS: MCHC ND g/dL (28.0-37.0)
[2018-07-08 08:59] LABS: RDW-CV ND % (10.5-14.5)
[2018-07-08 09:00] LABS: MPV ND fl. (7.2-11.1); PLATELET COUNT* ND thou/uL (150-400)
[2018-07-08 09:01] LABS: POLYS ND %
[2018-07-08 09:02] LABS: LYMPHOCYTES ND %; MONOCYTES ND %
[2018-07-08 09:03] LABS: EOSINOPHILS ND %
[2018-07-08 09:04] LABS: ABSOLUTE LYMPHOCYTES ND thou/uL (0.8-5.3); ABSOLUTE NEUTROPHILS ND thou/uL (1.6-8.1); BASOPHILS ND %
[2018-07-08 09:05] LABS: ABSOLUTE EOSINOPHILS ND thou/uL (0.0-0.7); ABSOLUTE MONOCYTES ND thou/uL (0.0-1.2)
[2018-07-08 09:06] LABS: ABSOLUTE BASOPHILS ND thou/uL (0.0-0.2); NUCLEATED RBCS ND /100WBC
[2018-07-08 09:20] LABS: APTT 37.9 Seconds (25.0-31.3); INR 2.3; PROTIME 23.9 Seconds (9.20-11.50)
[2018-07-08 15:00] VITALS: BP 146/66
[2018-07-08 15:20] VITALS: BP 150/76
[2018-07-08 20:00] VITALS: BP 175/88
[2018-07-09] VITALS: BP 140/88
[2018-07-09 04:00] VITALS: BP 134/72
[2018-07-09 05:23] LABS: HEMATOCRIT 44.5 % (42.0-52.0); HEMOGLOBIN 15.2 gm/dL (14.0-18.0); MCH 30.4 pg (26.0-34.0); MCHC 34.2 g/dL (28.0-37.0); MCV 88.7 fL (80.0-100.0); MPV 7.5 fl. (7.2-11.1); RBC 5.01 mil/uL (4.50-6.00); RDW-CV 14.7 % (10.5-14.5); WBC 6.1 thou/uL (4.0-11.0)
[2018-07-09 05:41] LABS: INR 2.1; PROTIME 21.3 Seconds (9.20-11.50)
[2018-07-09 06:11] LABS: ALBUMIN 3.6 g/dL (3.4-5.0); CALCIUM 8.8 mg/dL (8.5-10.1); CREATININE 0.8 mg/dL (0.6-1.3); PHOSPHORUS* 2.8 mg/dL (2.5-4.9); TOTAL BILIRUBIN 0.8 mg/dL (<0.1-1.0); TOTAL PROTEIN 6.7 g/dL (6.4-8.2)
[2018-07-09 08:00] VITALS: BP 170/96
[2018-07-09 09:49] VITALS: BP 170/96
--- NOTE | 2018-07-09 11:19 | EKG ---
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: : 1930 Requested By: Cheryl Monahan Order Number: [id number] Reading MD: Eddie Armas Measurements Intervals [place] Rate: 63 P: [place]: QRS: 30 QRSD: 141 T: 18 QT: 433 QTc: 444 Interpretive Statements Atrial fibrillation Right bundle branch block Compared to ECG 05/04/2017 14:16:31 Right bundle-branch block now present Electronically Signed On 07-09-2018 11:19:07 EXTRUSION ENGINEER by Eddie Armas [email or web address] <ELECTRONICALLY SIGNED> By: Eddie Armas MD, FAC 07/09/18 1119 0742 0742 Eddie Armas MD, [facility] /EPI
[2018-07-09 11:24] VITALS: BP 150/75
[2018-07-09] MEDS ORDERED: COZAAR 25 MG TA25 M1 PO (12:35)
== END 2018-07-09 13:00 | disposition home health service (06) | DRG 309 ==
LOC: M.ERS 07:36 → M.TBA-ER 10:10 → M.2W 10:10
PROVIDERS: Personal Emergency Response Attendant; ADMIT Internal Medicine
DX: I48.0 Paroxysmal atrial fibrillation (principal); D68.59 Other primary thrombophilia; I16.0 Hypertensive urgency; I25.10 Atherosclerotic heart disease of native coronary artery without angina pectoris; I87.2 Venous insufficiency (chronic) (peripheral); K21.9 Gastro-esophageal reflux disease without esophagitis; T50.905A Adverse effect of unspecified drugs, medicaments and biological substances, initial encounter; E78.5 Hyperlipidemia, unspecified; E11.9 Type 2 diabetes mellitus without complications; J44.9 Chronic obstructive pulmonary disease, unspecified; Z96.653 Presence of artificial knee joint, bilateral; Z79.01 Long term (current) use of anticoagulants; Z85.828 Personal history of other malignant neoplasm of skin; Z90.49 Acquired absence of other specified parts of digestive tract; Z79.899 Other long term (current) drug therapy; Z88.0 Allergy status to penicillin; Z91.14 Patient's other noncompliance with medication regimen; Z87.891 Personal history of nicotine dependence; Z95.5 Presence of coronary angioplasty implant and graft; Y92.89 Other specified places as the place of occurrence of the external cause

== ENCOUNTER → 2018-11-06 | Outpatient (CLI) | payer MEDICARE, OTHER ==
[~2018-11-06] MED LIST changes: +COZAAR 25 MG TA25 M1 PO
== END ==
LOC: M.RAD 15:21
DX: J43.9 Emphysema, unspecified (principal); R09.89 Other specified symptoms and signs involving the circulatory and respiratory systems

== ENCOUNTER 2018-12-21 16:23 | Emergency (ER) | payer MEDICARE, OTHER ==
[~2018-12-21] VITALS: Ht 185.4 cm; Wt 104.3 kg
[~2018-12-21 16:23] MED LIST changes: +COUMADIN7.5 MG PO
[2018-12-21 17:11] LABS: ABSOLUTE BASOPHILS 0.1 thou/uL (0.0-0.2); ABSOLUTE EOSINOPHILS 0.1 thou/uL (0.0-0.7); ABSOLUTE LYMPHOCYTES 0.8 thou/uL (0.8-5.3); ABSOLUTE MONOCYTES 0.3 thou/uL (0.0-1.2); ABSOLUTE NEUTROPHILS 6.2 thou/uL (1.6-8.1); BASOPHILS 1.3 %; EOSINOPHILS 1.2 %; HEMATOCRIT 41.1 % (42.0-52.0); HEMOGLOBIN 14.2 gm/dL (14.0-18.0); LYMPHOCYTES 10.8 %; MCH 30.4 pg (26.0-34.0); MCHC 34.4 g/dL (28.0-37.0); MCV 88.3 fL (80.0-100.0); MONOCYTES 4.2 %; MPV 6.9 fl. (7.2-11.1); NUCLEATED RBCS 0 /100WBC; PLATELET COUNT* 109 thou/uL (150-400); POLYS 82.5 %; RBC 4.66 mil/uL (4.50-6.00); RDW-CV 15.1 % (10.5-14.5); WBC 7.5 thou/uL (4.0-11.0)
[2018-12-21 17:28] LABS: ALBUMIN 3.2 g/dL (3.4-5.0); CALCIUM 8.7 mg/dL (8.5-10.1); CREATININE 0.9 mg/dL (0.6-1.3); POTASSIUM 4.2 mmol/L (3.5-5.1); TOTAL BILIRUBIN 0.7 mg/dL (<0.1-1.0); TOTAL PROTEIN 6.1 g/dL (6.4-8.2)
[2018-12-21 17:39] LABS: INR 2.6; PROTIME 26.2 Seconds (9.20-11.50)
[2018-12-21] MEDS ORDERED: PREDNISONE 20 M20 MG PO (18:48)
[2018-12-21 19:01] VITALS: BP 110/70
== END 2018-12-21 19:01 | disposition home or self-care (01) ==
LOC: M.ERS 16:23
PROVIDERS: Nurse Practitioner Family
DX: J44.1 Chronic obstructive pulmonary disease with (acute) exacerbation (principal); I10 Essential (primary) hypertension; K21.9 Gastro-esophageal reflux disease without esophagitis; I48.91 Unspecified atrial fibrillation; E78.5 Hyperlipidemia, unspecified; E11.9 Type 2 diabetes mellitus without complications; Z87.891 Personal history of nicotine dependence; Z88.0 Allergy status to penicillin; Z96.653 Presence of artificial knee joint, bilateral; Z90.49 Acquired absence of other specified parts of digestive tract

== ENCOUNTER → 2019-01-22 | Outpatient (CLI) | payer MEDICARE, OTHER ==
[~2019-01-22] MED LIST changes: +PREDNISONE 20 M20 MG PO
== END ==
LOC: M.RAD 12:20
DX: J98.6 Disorders of diaphragm (principal); R06.2 Wheezing; R05 Cough

== ENCOUNTER → 2019-02-03 | Outpatient (CLI) | payer MEDICARE, OTHER | LOC: M.ULTRA 13:00 | DX: R60.0 Localized edema (principal) ==

== ENCOUNTER → 2019-04-15 | Outpatient (CLI) | payer MEDICARE, OTHER ==
--- NOTE | 2019-04-15 12:03 | 2DMMODE ---
[place] [address] 2 D/M-MODE ECHOCARDIOGRAM Name: DAVIN CAAL Room: [facility]#: [id number] Admission: 04/15/19 Attend Phys: David Manning, Discharge: Date of : 32 Date of Service: 04/15/19 1203 Report #: [id number] THIS REPORT FOR: //name// APPROVED REPORT Study performed: 04/15/2019 10:37:32 EXAM: Comprehensive 2D, Doppler, and color-flow Echocardiogram Patient Location: Out-Patient BSA: 2.31 HR: 54 bpm BP: 130/85 mmHg Other Information Study Quality: Good Indications Atrial Fibrillation CAD 2D Dimensions IVSd: 12.09 (7-11mm) LVOT Diam: 20.45 (18-24mm) LVDd: 43.39 mm PWd: 10.75 (7-11mm) Ascending Ao: 36.49 (22-36mm) LVDs: 31.63 (25-40mm) Aortic Root: 29.25 mm Volumes Left Atrial Volume (Systole) LA ESV Index: 28.00 mL/m2 Aortic Valve AoV Peak Roshan.: 1.53 m/s AO Peak Gr.: 9.37 mmHg LVOT Max P.84 mmHg AO Mean Gr.: 4.67 mmHg LVOT Mean P.11 mmHg LVOT Max V: 1.10 m/s AO V2 VTI: 35.06 cm LVOT Mean V: 0.66 m/s KATHERINE (VTI): 2.27 cm2 LVOT V1 VTI: 24.20 cm Mitral Valve MV Decel. Time: 193.77 ms MV PHT: 56.19 ms MVA (PHT): 3.91 [place]2 [place] [address] 2 D/M-MODE ECHOCARDIOGRAM Name: DAVIN CAAL Room: [facility]#: [id number] Admission: 04/15/19 Attend Phys: David Manning, Discharge: Date of : 31 Date of Service: 04/15/19 1203 Report #: [id number] TDI Medial E' Roshan.: 0.11 m/s Lateral E' Roshan.: 0.12 m/s Pulmonary Valve PV Peak Roshan.: 1.09 m/s PV Peak Gr.: 4.79 mmHg Tricuspid Valve RAP Estimate: 5.00 mmHg TR Peak Gr.: 28.14 mmHg RVSP: 33.14 mmHg PA Pressure: 33.14 mmHg Left Ventricle The left ventricle is normal size. There is normal LV segmental wall motion. There is normal left ventricular wall thickness. Left ventricular systolic function is normal. The left ventricular ejection fraction is within the normal range. LVEF is 50-55%. This study is not technically sufficient to allow evaluation of the LV diastolic function due to atrial fibrillation. Right Ventricle Right ventricle is mildly dilated. The right ventricular systolic function is normal. Atria The left atrium size is normal. Right atrium is mildly dilated. Aortic Valve Aortic valve is mildly calcified. No aortic regurgitation is present. There is no aortic valvular stenosis. Mitral Valve The mitral valve is normal in structure. Mild mitral regurgitation. No evidence of mitral valve stenosis. Tricuspid Valve The tricuspid valve is normal in structure. Mild tricuspid regurgitation. estimated pa pressure 35 mm Hg Pulmonic Valve The pulmonary valve is normal in structure. Mild pulmonic regurgitation. Great Vessels The aortic root is normal in size. IVC [place] [address] 2 D/M-MODE ECHOCARDIOGRAM Name: TENDAVIN Nathaly Room: [facility]#: [id number] Admission: 04/15/19 Attend Phys: David Manning, Discharge: Date of : 31 Date of Service: 04/15/19 1203 Report #: [id number] collapses >50% with inspiration. Pericardium There is no pericardial effusion. <Conclusion> LVEF is 50-55%. Right ventricle is mildly dilated. Aortic valve is mildly calcified. <ELECTRONICALLY SIGNED> By: Nilson Downs MD, [facility] 04/15/191202 02 02 Nilson Downs MD, FACC /INF
== END ==
LOC: M.CRD 10:39
DX: I08.8 Other rheumatic multiple valve diseases (principal); I48.91 Unspecified atrial fibrillation; I25.10 Atherosclerotic heart disease of native coronary artery without angina pectoris; Z88.0 Allergy status to penicillin

== ENCOUNTER 2019-04-23 10:18 | Emergency (ER) | payer MEDICARE, OTHER ==
[~2019-04-23] VITALS: Ht 185.4 cm; Wt 104.3 kg
[2019-04-23] MEDS ORDERED: COUMADIN 1MG TAB1 M1 PO (10:38)
[2019-04-23] MEDS ORDERED: FLOMAX0.4 MG PO (10:39)
[2019-04-23] MEDS ORDERED: SYMBICORT160 MCG/4. INH (10:39)
[2019-04-23 10:40] LABS: ABSOLUTE BASOPHILS 0.1 thou/uL (0.0-0.2); ABSOLUTE EOSINOPHILS 0.1 thou/uL (0.0-0.7); ABSOLUTE LYMPHOCYTES 0.7 thou/uL (0.8-5.3); ABSOLUTE MONOCYTES 0.4 thou/uL (0.0-1.2); ABSOLUTE NEUTROPHILS 3.7 thou/uL (1.6-8.1); BASOPHILS 1.2 %; EOSINOPHILS 2.2 %; HEMATOCRIT 41.9 % (42.0-52.0); HEMOGLOBIN 14.2 gm/dL (14.0-18.0); MCH 30.5 pg (26.0-34.0); MCHC 33.9 g/dL (28.0-37.0); MONOCYTES 7.7 %; MPV 7.4 fl. (7.2-11.1); NUCLEATED RBCS 0 /100WBC; PLATELET COUNT* 126 thou/uL (150-400); POLYS 74.9 %; RBC 4.66 mil/uL (4.50-6.00); RDW-CV 14.6 % (10.5-14.5)
[2019-04-23] MEDS ORDERED: TOPROL XL50 MG PO (10:40)
[2019-04-23 10:50] LABS: URINE BILIRUBIN NEGATIVE (Negative); URINE BLOOD NEGATIVE (Negative); URINE CLARITY CLEAR; URINE COLOR YELLOW; URINE GLUCOSE-RANDOM NEGATIVE (Negative); URINE KETONES NEGATIVE (Negative); URINE LEUKOCYTES-REFLEX NEGATIVE (Negative); URINE NITRITE-REFLEX NEGATIVE (Negative); URINE PROTEIN NEGATIVE (Negative); URINE UROBILINOGEN 0.2 E.U./dl (0.2-1.0)
[2019-04-23 10:51] LABS: ANION GAP 4 mmol/L (7-16); BUN 12 mg/dL (7-18); CALCIUM 8.9 mg/dL (8.5-10.1); CHLORIDE 101 mmol/L (98-107); CO2 31 mmol/L (21-32); CREATININE 0.8 mg/dL (0.6-1.3); GLUCOSE 122 mg/dL (70-99); POTASSIUM 4.2 mmol/L (3.5-5.1); SODIUM 136 mmol/L (136-145)
[2019-04-23 11:06] LABS: ALBUMIN 3.7 g/dL (3.4-5.0); ALKALINE PHOSPHATASE 82 U/L (46-116); INR 2.4; LIPASE 73 U/L (73-393); NT-PRO BRAIN NAT PEPTIDE 751 pg/mL (<300); PROTIME 23.5 Seconds (9.20-11.50); SGOT 21 U/L (15-37); SGPT 28 U/L (30-65); TOTAL BILIRUBIN 0.8 mg/dL (<0.1-1.0); TOTAL PROTEIN 6.8 g/dL (6.4-8.2); TROPONIN-I LEVEL <0.06 ng/mL (<0.06)
[2019-04-23 12:20] VITALS: BP 144/83
--- NOTE | 2019-04-23 16:57 | EKG ---
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: : 1930 Requested By: Immanuel Wade Order Number: [id number] MD: Nilson Downs Measurements Intervals [place] Rate: 66 P: [place]: QRS: 21 QRSD: 141 T: 7 QT: 407 QTc: 427 Interpretive Statements Atrial fibrillation Right bundle branch block Compared to ECG 12/11/2018 15:13:27 Ventricular premature complex(es) no longer present Electronically Signed On 04-23-2019 16:57:16 CDT by Nilson Downs [email or web address] <ELECTRONICALLY SIGNED> By: Nilson Downs MD, [facility] 04/23/19 1657 1025 1025 Nilson Downs MD, FACC /EPI
== END 2019-04-23 12:21 | disposition home or self-care (01) ==
LOC: M.ERS 10:18
PROVIDERS: Physician Assistant
DX: R13.10 Dysphagia, unspecified (principal); I10 Essential (primary) hypertension; E11.9 Type 2 diabetes mellitus without complications; I48.91 Unspecified atrial fibrillation; K21.9 Gastro-esophageal reflux disease without esophagitis; E78.5 Hyperlipidemia, unspecified; Z96.653 Presence of artificial knee joint, bilateral; Z90.49 Acquired absence of other specified parts of digestive tract; Z95.5 Presence of coronary angioplasty implant and graft; Z98.890 Other specified postprocedural states; Z88.0 Allergy status to penicillin; Z87.891 Personal history of nicotine dependence; Z95.1 Presence of aortocoronary bypass graft

== ENCOUNTER → 2019-05-02 | Outpatient (CLI) | payer MEDICARE, OTHER ==
[~2019-05-02] MED LIST changes: +COUMADIN 1MG TAB1 M1 PO; +FLOMAX0.4 MG PO; +TOPROL XL50 MG PO
== END ==
LOC: M.RAD 08:32
DX: R13.10 Dysphagia, unspecified (principal); K21.9 Gastro-esophageal reflux disease without esophagitis

== ENCOUNTER 2019-07-20 03:39 | Emergency (ER) | payer MEDICARE, OTHER ==
[~2019-07-20] VITALS: Ht 185.4 cm; Wt 103.9 kg
[2019-07-20 04:27] LABS: ABSOLUTE BASOPHILS 0.1 thou/uL (0.0-0.2); ABSOLUTE EOSINOPHILS 0.2 thou/uL (0.0-0.7); ABSOLUTE MONOCYTES 0.5 thou/uL (0.0-1.2); ABSOLUTE NEUTROPHILS 4.1 thou/uL (1.6-8.1); EOSINOPHILS 2.7 %; HEMATOCRIT 42.6 % (42.0-52.0); HEMOGLOBIN 14.4 gm/dL (14.0-18.0); LYMPHOCYTES 17.2 %; MCH 29.6 pg (26.0-34.0); MCHC 33.9 g/dL (28.0-37.0); MCV 87.4 fL (80.0-100.0); MONOCYTES 8.2 %; MPV 7.8 fl. (7.2-11.1); NUCLEATED RBCS 0 /100WBC; PLATELET COUNT* 124 thou/uL (150-400); POLYS 70.9 %; RBC 4.88 mil/uL (4.50-6.00); RDW-CV 14.9 % (10.5-14.5); WBC 5.8 thou/uL (4.0-11.0)
[2019-07-20 04:39] LABS: CALCIUM 8.6 mg/dL (8.5-10.1); CREATININE 0.7 mg/dL (0.6-1.3)
[2019-07-20 04:49] LABS: ALBUMIN 3.5 g/dL (3.4-5.0); TOTAL BILIRUBIN 0.5 mg/dL (<0.1-1.0); TOTAL PROTEIN 6.6 g/dL (6.4-8.2)
[2019-07-20 05:20] VITALS: BP 145/80
[2019-07-20] MEDS ORDERED: MUCUS ER600 M1 PO (05:22)
[2019-07-20] MEDS ORDERED: MEDROL DOSPAK21 TA1 PO (05:22)
[2019-07-20] MEDS ORDERED: AZITHROMYCIN 2250 MG PO (05:22)
--- NOTE | 2019-07-21 11:34 | EKG ---
[place] [address] ELECTROCARDIOGRAM REPORT Name: CAALNATHANIEL Andersen Room: [facility]#: [id number] Admission: 07/20/19 Attend Phys: Discharge: 07/20/19 Date of : 32 Report #: [id number] THIS REPORT FOR: //name// [facility] ED Test Date: 2019-07-20 Test Time: 03:45:29 Pat Name: NATHANIEL CAAL Department: Room: Gender: Conservation Officer: [place] : 1930 Requested By: Nathaniel Deng Order Number: [id number] MD: Nilson Downs Measurements Intervals [place] Rate: 55 P: [place]: QRS: 37 QRSD: 144 T: 25 QT: 434 QTc: 416 Interpretive Statements Atrial fibrillation Right bundle branch block Compared to ECG 04/23/2019 10:25:23 No significant changes Electronically Signed On 07-21-2019 11:34:38 AGENT PRODUCER by Nilson Downs [email or web address] <ELECTRONICALLY SIGNED> By: Nilson Downs MD, [facility] 07/21/19 1134 0345 0345 Nilson Downs MD, FACC /EPI
== END 2019-07-20 05:25 | disposition home or self-care (01) ==
LOC: M.ERS 03:39
PROVIDERS: Emergency Medicine
DX: J44.9 Chronic obstructive pulmonary disease, unspecified (principal); I10 Essential (primary) hypertension; I48.91 Unspecified atrial fibrillation; K21.9 Gastro-esophageal reflux disease without esophagitis; E11.9 Type 2 diabetes mellitus without complications; E78.5 Hyperlipidemia, unspecified; Z90.49 Acquired absence of other specified parts of digestive tract; Z88.0 Allergy status to penicillin; Z87.891 Personal history of nicotine dependence

== ENCOUNTER 2019-08-20 14:24 | Emergency (ER) | payer MEDICARE, OTHER ==
[~2019-08-20] VITALS: Ht 185.4 cm; Wt 104.3 kg
[~2019-08-20 14:24] MED LIST changes: +AZITHROMYCIN 2250 MG PO; +MEDROL DOSPAK21 TA1 PO; +MUCUS ER600 M1 PO
[2019-08-20] MEDS ORDERED: COUMADIN 10MG T10 M1 PO (14:38)
[2019-08-20] MEDS ORDERED: MEDROL DOSPAK21 TA1 PO ×2 (16:28→16:32)
[2019-08-20 17:07] VITALS: BP 126/82
== END 2019-08-20 17:11 | disposition home or self-care (01) ==
LOC: M.ERS 14:24
DX: J40 Bronchitis, not specified as acute or chronic (principal); I10 Essential (primary) hypertension; K21.9 Gastro-esophageal reflux disease without esophagitis; J44.9 Chronic obstructive pulmonary disease, unspecified; I48.91 Unspecified atrial fibrillation; E78.5 Hyperlipidemia, unspecified; E11.9 Type 2 diabetes mellitus without complications; Z88.0 Allergy status to penicillin; Z96.653 Presence of artificial knee joint, bilateral; Z90.49 Acquired absence of other specified parts of digestive tract; Z87.891 Personal history of nicotine dependence

== ENCOUNTER 2019-09-01 06:57 | Emergency (ER) | payer MEDICARE, OTHER ==
[~2019-09-01] VITALS: Ht 185.4 cm; Wt 104.3 kg
[~2019-09-01 06:57] MED LIST changes: +COUMADIN 10MG T10 M1 PO
[2019-09-01 07:45] LABS: ABSOLUTE BASOPHILS 0.1 thou/uL (0.0-0.2); ABSOLUTE EOSINOPHILS 0.1 thou/uL (0.0-0.7); ABSOLUTE LYMPHOCYTES 0.9 thou/uL (0.8-5.3); ABSOLUTE MONOCYTES 0.4 thou/uL (0.0-1.2); ABSOLUTE NEUTROPHILS 4.2 thou/uL (1.6-8.1); BASOPHILS 1.3 %; EOSINOPHILS 1.7 %; HEMATOCRIT 43.4 % (42.0-52.0); HEMOGLOBIN 14.9 gm/dL (14.0-18.0); LYMPHOCYTES 16.3 %; MCHC 34.4 g/dL (28.0-37.0); MONOCYTES 6.7 %; NUCLEATED RBCS 0 /100WBC; PLATELET COUNT* 129 thou/uL (150-400); RBC 4.99 mil/uL (4.50-6.00); WBC 5.7 thou/uL (4.0-11.0)
[2019-09-01 07:56] LABS: CALCIUM 7.9 mg/dL (8.5-10.1); CREATININE 0.8 mg/dL (0.6-1.3); POTASSIUM 4.1 mmol/L (3.5-5.1)
[2019-09-01 08:00] LABS: ALBUMIN 3.5 g/dL (3.4-5.0); TOTAL BILIRUBIN 0.9 mg/dL (<0.1-1.0); TOTAL PROTEIN 6.6 g/dL (6.4-8.2)
[2019-09-01 08:03] LABS: URINE BILIRUBIN NEGATIVE (Negative); URINE BLOOD NEGATIVE (Negative); URINE CLARITY CLEAR; URINE COLOR YELLOW; URINE GLUCOSE-RANDOM NEGATIVE (Negative); URINE KETONES NEGATIVE (Negative); URINE LEUKOCYTES-REFLEX NEGATIVE (Negative); URINE NITRITE-REFLEX NEGATIVE (Negative); URINE PROTEIN NEGATIVE (Negative); URINE UROBILINOGEN 0.2 E.U./dl (0.2-1.0)
[2019-09-01 09:43] VITALS: BP 158/93
[2019-09-01 09:48] LABS: INR 2.8; PROTIME 27.4 Seconds (9.20-11.50)
--- NOTE | 2019-09-01 10:08 | EKG ---
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
== END 2019-09-01 09:44 | disposition home or self-care (01) ==
LOC: M.ERS 06:57
PROVIDERS: Family Medicine
DX: R10.32 Left lower quadrant pain (principal); I10 Essential (primary) hypertension; E11.9 Type 2 diabetes mellitus without complications; I48.91 Unspecified atrial fibrillation; K21.9 Gastro-esophageal reflux disease without esophagitis; E78.5 Hyperlipidemia, unspecified; Z90.49 Acquired absence of other specified parts of digestive tract; Z96.653 Presence of artificial knee joint, bilateral; Z88.1 Allergy status to other antibiotic agents; Z88.0 Allergy status to penicillin; Z87.891 Personal history of nicotine dependence

== ENCOUNTER 2019-10-05 10:44 | Emergency (ER) | payer MEDICARE, OTHER ==
[~2019-10-05] VITALS: Ht 185.4 cm; Wt 104.3 kg
[2019-10-05 11:34] LABS: ABSOLUTE BASOPHILS 0.1 thou/uL (0.0-0.2); ABSOLUTE EOSINOPHILS 0.1 thou/uL (0.0-0.7); ABSOLUTE LYMPHOCYTES 0.5 thou/uL (0.8-5.3); ABSOLUTE MONOCYTES 0.4 thou/uL (0.0-1.2); ABSOLUTE NEUTROPHILS 4.8 thou/uL (1.6-8.1); EOSINOPHILS 1.4 %; HEMATOCRIT 41.6 % (42.0-52.0); HEMOGLOBIN 14.3 gm/dL (14.0-18.0); LYMPHOCYTES 9.3 %; MCH 30.2 pg (26.0-34.0); MCHC 34.3 g/dL (28.0-37.0); MCV 88.2 fL (80.0-100.0); MONOCYTES 6.4 %; MPV 7.6 fl. (7.2-11.1); NUCLEATED RBCS 0 /100WBC; PLATELET COUNT* 125 thou/uL (150-400); POLYS 81.9 %; RBC 4.72 mil/uL (4.50-6.00); RDW-CV 14.6 % (10.5-14.5); WBC 5.9 thou/uL (4.0-11.0)
[2019-10-05 11:48] LABS: CALCIUM 8.2 mg/dL (8.5-10.1); CREATININE 0.7 mg/dL (0.6-1.3); POTASSIUM 4.1 mmol/L (3.5-5.1)
[2019-10-05 11:49] LABS: APTT 38.8 Seconds (25.0-31.3); INR 2.3; PROTIME 22.5 Seconds (9.20-11.50)
[2019-10-05 11:58] LABS: ALBUMIN 3.4 g/dL (3.4-5.0); MAGNESIUM 1.7 mg/dL (1.8-2.4); TOTAL BILIRUBIN 0.8 mg/dL (<0.1-1.0); TOTAL PROTEIN 6.4 g/dL (6.4-8.2)
[2019-10-05 12:56] LABS: INFLUENZA A ANTIGEN Negative (Negative); INFLUENZA B ANTIGEN Negative (Negative)
[2019-10-05] MEDS ORDERED: PREDNISONE50 MG PO (13:41)
[2019-10-05] MEDS ORDERED: VENTOLIN HFA 1818 GM INH (13:41)
[2019-10-05 13:53] VITALS: BP 149/88
--- NOTE | 2019-10-08 13:56 | EKG ---
[place] [address] ELECTROCARDIOGRAM REPORT Name: DAVIN CAAL Room: [facility]#: [id number] Admission: 10/05/19 Attend Phys: Discharge: 10/05/19 Date of : 32 Date of Service: 10/05/19 1052 Report #: [id number] THIS REPORT FOR: cc: Kira Matt MD, Katrina MD Holkins, John M. 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 Analyst: [place] : 1930 Requested By: Javier Kimble Order Number: [id number] MD: Otoniel Serna Measurements Intervals [place] Rate: 58 P: [place]: QRS: 43 QRSD: 142 T: 21 QT: 411 QTc: 404 Interpretive Statements Atrial fibrillation Right bundle branch block Compared to ECG 09/01/2019 07:43:08 No significant changes Electronically Signed On 10-06-2019 16:02:22 APPLICATION PACKAGING SPECIALIST by Otoniel Serna [email or web address] <ELECTRONICALLY SIGNED> By: Otoniel Serna MD, [facility] 10/06/19 1602 1052 1052 Otoniel Serna MD, [facility] /EPI
== END 2019-10-05 13:54 | disposition home or self-care (01) ==
LOC: M.ERS 10:44
PROVIDERS: Emergency Medicine Emergency Medical Services
DX: J40 Bronchitis, not specified as acute or chronic (principal); I48.91 Unspecified atrial fibrillation; I10 Essential (primary) hypertension; J44.9 Chronic obstructive pulmonary disease, unspecified; E11.9 Type 2 diabetes mellitus without complications; E78.5 Hyperlipidemia, unspecified; Z90.49 Acquired absence of other specified parts of digestive tract; Z96.653 Presence of artificial knee joint, bilateral; Z88.0 Allergy status to penicillin; Z88.1 Allergy status to other antibiotic agents; Z87.891 Personal history of nicotine dependence

== ENCOUNTER 2019-10-08 14:39 | Emergency (ER) | payer MEDICARE, OTHER ==
[~2019-10-08] VITALS: Ht 185.4 cm; Wt 104.3 kg
[2019-10-08 15:34] LABS: HEMATOCRIT 41.6 % (42.0-52.0); HEMOGLOBIN 14.3 gm/dL (14.0-18.0); MCH 30.5 pg (26.0-34.0); MCHC 34.5 g/dL (28.0-37.0); MCV 88.6 fL (80.0-100.0); MPV 7.2 fl. (7.2-11.1); NUCLEATED RBCS 0 /100WBC; PLATELET COUNT* 142 thou/uL (150-400); RDW-CV 14.7 % (10.5-14.5); WBC 8.7 thou/uL (4.0-11.0)
[2019-10-08 15:41] LABS: CALCIUM 8.3 mg/dL (8.5-10.1); POTASSIUM 4.4 mmol/L (3.5-5.1)
[2019-10-08 15:47] LABS: BE -1.6 mmol/L (-2 to +3); PCO2 31.3 mmHg (35.0-45.0); PO2 82.3 mmHg (75.0-100.0); pH 7.451 (7.340-7.450)
[2019-10-08 15:49] LABS: ALBUMIN 3.7 g/dL (3.4-5.0); MAGNESIUM 1.7 mg/dL (1.8-2.4); TOTAL BILIRUBIN 0.7 mg/dL (<0.1-1.0); TOTAL PROTEIN 6.7 g/dL (6.4-8.2)
[2019-10-08 16:07] LABS: URINE BILIRUBIN NEGATIVE (Negative); URINE BLOOD NEGATIVE (Negative); URINE CLARITY CLEAR; URINE COLOR YELLOW; URINE GLUCOSE-RANDOM NEGATIVE (Negative); URINE KETONES NEGATIVE (Negative); URINE LEUKOCYTES-REFLEX NEGATIVE (Negative); URINE NITRITE-REFLEX NEGATIVE (Negative); URINE PROTEIN NEGATIVE (Negative); URINE UROBILINOGEN 0.2 E.U./dl (0.2-1.0)
[2019-10-08 16:12] LABS: ABSOLUTE LYMPHOCYTES 0.4 thou/uL (0.8-5.3); ABSOLUTE MONOCYTES 0.1 thou/uL (0.0-1.2); ABSOLUTE NEUTROPHILS 8.2 thou/uL (1.6-8.1)
[2019-10-08 16:13] LABS: PLATELET ESTIMATE DECREASED
[2019-10-08 16:54] LABS: INFLUENZA A ANTIGEN Negative (Negative); INFLUENZA B ANTIGEN Negative (Negative)
[2019-10-08] MEDS ORDERED: CEFDINIR300 MG PO (17:11)
[2019-10-08 19:01] VITALS: BP 131/76
--- NOTE | 2019-10-09 11:15 | EKG ---
[place] [address] ELECTROCARDIOGRAM REPORT Name: DAVIN CAAL Room: [facility]#: [id number] Admission: 10/08/19 Attend Phys: Discharge: 10/08/19 Date of : 32 Date of Service: 10/08/19 1528 Report #: [id number] THIS REPORT FOR: cc: Kira Matt MD, Katrina MD Holkins, John M. 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
== END 2019-10-08 19:01 | disposition home or self-care (01) ==
LOC: M.ERS 14:39
PROVIDERS: Personal Emergency Response Attendant
DX: R06.02 Shortness of breath (principal); R10.13 Epigastric pain; R10.12 Left upper quadrant pain; R42 Dizziness and giddiness; R60.0 Localized edema; I10 Essential (primary) hypertension; I48.91 Unspecified atrial fibrillation; E11.9 Type 2 diabetes mellitus without complications; E78.5 Hyperlipidemia, unspecified; J44.9 Chronic obstructive pulmonary disease, unspecified; K21.9 Gastro-esophageal reflux disease without esophagitis; Z96.653 Presence of artificial knee joint, bilateral; Z90.49 Acquired absence of other specified parts of digestive tract; Z87.891 Personal history of nicotine dependence; Z88.0 Allergy status to penicillin; Z88.1 Allergy status to other antibiotic agents

== ENCOUNTER → 2019-10-16 | Outpatient (CLI) | payer MEDICARE, OTHER ==
[~2019-10-16] MED LIST changes: +CEFDINIR300 MG PO
[2019-10-16 12:09] LABS: CALCIUM 8.3 mg/dL (8.5-10.1); CREATININE 0.8 mg/dL (0.6-1.3); POTASSIUM 4.2 mmol/L (3.5-5.1)
== END ==
LOC: M.LAB 11:29
PROVIDERS: Registered Nurse
DX: R06.02 Shortness of breath (principal)

== ENCOUNTER 2019-10-30 07:27 | Emergency (ER) | payer MEDICARE, OTHER ==
[~2019-10-30] VITALS: Ht 185.4 cm; Wt 104.3 kg
[2019-10-30] MEDS ORDERED: KEFLEX500 M1 PO (08:44)
[2019-10-30 09:23] VITALS: BP 159/77
== END 2019-10-30 09:24 | disposition home or self-care (01) ==
LOC: M.ERS 07:27
DX: S80.12XA Contusion of left lower leg, initial encounter (principal); I10 Essential (primary) hypertension; I48.91 Unspecified atrial fibrillation; E11.9 Type 2 diabetes mellitus without complications; E78.5 Hyperlipidemia, unspecified; K21.9 Gastro-esophageal reflux disease without esophagitis; J44.9 Chronic obstructive pulmonary disease, unspecified; Z96.653 Presence of artificial knee joint, bilateral; Z90.49 Acquired absence of other specified parts of digestive tract; Z87.891 Personal history of nicotine dependence; Z88.0 Allergy status to penicillin; Z88.1 Allergy status to other antibiotic agents; W22.8XXA Striking against or struck by other objects, initial encounter; Y93.89 Activity, other specified; Y92.89 Other specified places as the place of occurrence of the external cause; Y99.8 Other external cause status

== ENCOUNTER 2019-10-31 07:47 | Emergency (ER) | payer MEDICARE, OTHER ==
[~2019-10-31] VITALS: Ht 185.4 cm; Wt 104.3 kg
[~2019-10-31 07:47] MED LIST changes: +KEFLEX500 M1 PO
[2019-10-31 09:06] VITALS: BP 149/73
== END 2019-10-31 09:07 | disposition home or self-care (01) ==
LOC: M.ERS 07:47
DX: S80.12XA Contusion of left lower leg, initial encounter (principal); I10 Essential (primary) hypertension; I48.91 Unspecified atrial fibrillation; E11.9 Type 2 diabetes mellitus without complications; E78.5 Hyperlipidemia, unspecified; K21.9 Gastro-esophageal reflux disease without esophagitis; J44.9 Chronic obstructive pulmonary disease, unspecified; Z90.49 Acquired absence of other specified parts of digestive tract; Z96.653 Presence of artificial knee joint, bilateral; Z87.891 Personal history of nicotine dependence; Z88.0 Allergy status to penicillin; Z88.1 Allergy status to other antibiotic agents; X58.XXXA Exposure to other specified factors, initial encounter; Y93.89 Activity, other specified; Y92.89 Other specified places as the place of occurrence of the external cause; Y99.8 Other external cause status

== ENCOUNTER → 2019-11-11 | Outpatient (CLI) | payer MEDICARE, OTHER | LOC: M.WC 07:47 | DX: T81.89XA Other complications of procedures, not elsewhere classified, initial encounter (principal); E11.40 Type 2 diabetes mellitus with diabetic neuropathy, unspecified; E78.5 Hyperlipidemia, unspecified; G47.00 Insomnia, unspecified; I10 Essential (primary) hypertension; I48.91 Unspecified atrial fibrillation; K21.9 Gastro-esophageal reflux disease without esophagitis; M48.061 Spinal stenosis, lumbar region without neurogenic claudication; M19.90 Unspecified osteoarthritis, unspecified site; Z87.891 Personal history of nicotine dependence; Z98.49 Cataract extraction status, unspecified eye; Z96.659 Presence of unspecified artificial knee joint; Z90.49 Acquired absence of other specified parts of digestive tract; Y83.8 Other surgical procedures as the cause of abnormal reaction of the patient, or of later complication, without mention of misadventure at the time of the procedure ==

== ENCOUNTER → 2019-11-17 | Outpatient (CLI) | payer MEDICARE, OTHER | LOC: M.WC 08:28 | DX: T81.89XD Other complications of procedures, not elsewhere classified, subsequent encounter (principal); I87.312 Chronic venous hypertension (idiopathic) with ulcer of left lower extremity; L97.822 Non-pressure chronic ulcer of other part of left lower leg with fat layer exposed; S81.802D Unspecified open wound, left lower leg, subsequent encounter; E11.40 Type 2 diabetes mellitus with diabetic neuropathy, unspecified; E78.5 Hyperlipidemia, unspecified; G47.00 Insomnia, unspecified; I10 Essential (primary) hypertension; I48.91 Unspecified atrial fibrillation; J44.9 Chronic obstructive pulmonary disease, unspecified; M48.061 Spinal stenosis, lumbar region without neurogenic claudication; M19.90 Unspecified osteoarthritis, unspecified site; K21.9 Gastro-esophageal reflux disease without esophagitis; Z87.891 Personal history of nicotine dependence; X58.XXXD Exposure to other specified factors, subsequent encounter; Y83.8 Other surgical procedures as the cause of abnormal reaction of the patient, or of later complication, without mention of misadventure at the time of the procedure ==

== ENCOUNTER → 2019-11-24 | Outpatient (CLI) | payer MEDICARE, OTHER | LOC: M.WC 04:23 | DX: T81.89XD Other complications of procedures, not elsewhere classified, subsequent encounter (principal); E11.622 Type 2 diabetes mellitus with other skin ulcer; I87.312 Chronic venous hypertension (idiopathic) with ulcer of left lower extremity; L97.822 Non-pressure chronic ulcer of other part of left lower leg with fat layer exposed; E11.40 Type 2 diabetes mellitus with diabetic neuropathy, unspecified; E78.5 Hyperlipidemia, unspecified; G47.00 Insomnia, unspecified; I48.91 Unspecified atrial fibrillation; J44.9 Chronic obstructive pulmonary disease, unspecified; K21.9 Gastro-esophageal reflux disease without esophagitis; M19.90 Unspecified osteoarthritis, unspecified site; M48.061 Spinal stenosis, lumbar region without neurogenic claudication; Z87.891 Personal history of nicotine dependence; Y83.8 Other surgical procedures as the cause of abnormal reaction of the patient, or of later complication, without mention of misadventure at the time of the procedure ==

== ENCOUNTER → 2019-11-26 | Outpatient (CLI) | payer MEDICARE, OTHER | LOC: M.WC 13:38 | DX: T81.89XD Other complications of procedures, not elsewhere classified, subsequent encounter (principal); E11.40 Type 2 diabetes mellitus with diabetic neuropathy, unspecified; E78.5 Hyperlipidemia, unspecified; G47.00 Insomnia, unspecified; I10 Essential (primary) hypertension; I48.91 Unspecified atrial fibrillation; J44.9 Chronic obstructive pulmonary disease, unspecified; K21.9 Gastro-esophageal reflux disease without esophagitis; M48.061 Spinal stenosis, lumbar region without neurogenic claudication; M19.90 Unspecified osteoarthritis, unspecified site; Z87.891 Personal history of nicotine dependence; Y83.8 Other surgical procedures as the cause of abnormal reaction of the patient, or of later complication, without mention of misadventure at the time of the procedure ==

== ENCOUNTER → 2019-12-01 | Outpatient (CLI) | payer MEDICARE, OTHER | LOC: M.WC 02:53 | DX: T81.89XD Other complications of procedures, not elsewhere classified, subsequent encounter (principal); E11.40 Type 2 diabetes mellitus with diabetic neuropathy, unspecified; E78.5 Hyperlipidemia, unspecified; G47.00 Insomnia, unspecified; I10 Essential (primary) hypertension; I48.91 Unspecified atrial fibrillation; J44.9 Chronic obstructive pulmonary disease, unspecified; K21.9 Gastro-esophageal reflux disease without esophagitis; M19.90 Unspecified osteoarthritis, unspecified site; M48.061 Spinal stenosis, lumbar region without neurogenic claudication; Z87.891 Personal history of nicotine dependence; Y83.8 Other surgical procedures as the cause of abnormal reaction of the patient, or of later complication, without mention of misadventure at the time of the procedure ==

== ENCOUNTER → 2019-12-08 | Outpatient (CLI) | payer MEDICARE, OTHER | LOC: M.WC 00:33 | DX: T81.89XD Other complications of procedures, not elsewhere classified, subsequent encounter (principal); S81.802D Unspecified open wound, left lower leg, subsequent encounter; E11.40 Type 2 diabetes mellitus with diabetic neuropathy, unspecified; E78.5 Hyperlipidemia, unspecified; G47.00 Insomnia, unspecified; I10 Essential (primary) hypertension; I48.91 Unspecified atrial fibrillation; J44.9 Chronic obstructive pulmonary disease, unspecified; K21.9 Gastro-esophageal reflux disease without esophagitis; M48.061 Spinal stenosis, lumbar region without neurogenic claudication; M19.90 Unspecified osteoarthritis, unspecified site; Z87.891 Personal history of nicotine dependence; X58.XXXD Exposure to other specified factors, subsequent encounter; Y83.8 Other surgical procedures as the cause of abnormal reaction of the patient, or of later complication, without mention of misadventure at the time of the procedure ==

== ENCOUNTER → 2019-12-15 | Outpatient (CLI) | payer MEDICARE, OTHER | LOC: M.WC 07:32 | DX: T81.89XD Other complications of procedures, not elsewhere classified, subsequent encounter (principal); S81.802D Unspecified open wound, left lower leg, subsequent encounter; E11.40 Type 2 diabetes mellitus with diabetic neuropathy, unspecified; E78.5 Hyperlipidemia, unspecified; G47.00 Insomnia, unspecified; I10 Essential (primary) hypertension; I48.91 Unspecified atrial fibrillation; J44.9 Chronic obstructive pulmonary disease, unspecified; K21.9 Gastro-esophageal reflux disease without esophagitis; M48.061 Spinal stenosis, lumbar region without neurogenic claudication; M19.90 Unspecified osteoarthritis, unspecified site; Z87.891 Personal history of nicotine dependence; X58.XXXD Exposure to other specified factors, subsequent encounter; Y83.8 Other surgical procedures as the cause of abnormal reaction of the patient, or of later complication, without mention of misadventure at the time of the procedure ==

== ENCOUNTER → 2019-12-22 | Outpatient (CLI) | payer MEDICARE, OTHER | LOC: M.WC 01:45 | DX: T81.89XD Other complications of procedures, not elsewhere classified, subsequent encounter (principal); I87.312 Chronic venous hypertension (idiopathic) with ulcer of left lower extremity; L97.822 Non-pressure chronic ulcer of other part of left lower leg with fat layer exposed; E11.40 Type 2 diabetes mellitus with diabetic neuropathy, unspecified; E78.5 Hyperlipidemia, unspecified; G47.00 Insomnia, unspecified; I48.91 Unspecified atrial fibrillation; J44.9 Chronic obstructive pulmonary disease, unspecified; K21.9 Gastro-esophageal reflux disease without esophagitis; M48.061 Spinal stenosis, lumbar region without neurogenic claudication; M19.90 Unspecified osteoarthritis, unspecified site; Z87.891 Personal history of nicotine dependence; Y83.8 Other surgical procedures as the cause of abnormal reaction of the patient, or of later complication, without mention of misadventure at the time of the procedure ==

== ENCOUNTER → 2019-12-29 | Outpatient (CLI) | payer MEDICARE, OTHER | LOC: M.WC 01:36 | DX: T81.89XD Other complications of procedures, not elsewhere classified, subsequent encounter (principal); I87.312 Chronic venous hypertension (idiopathic) with ulcer of left lower extremity; E11.622 Type 2 diabetes mellitus with other skin ulcer; L97.822 Non-pressure chronic ulcer of other part of left lower leg with fat layer exposed; E11.40 Type 2 diabetes mellitus with diabetic neuropathy, unspecified; G47.00 Insomnia, unspecified; E78.5 Hyperlipidemia, unspecified; I48.91 Unspecified atrial fibrillation; J44.9 Chronic obstructive pulmonary disease, unspecified; K21.9 Gastro-esophageal reflux disease without esophagitis; M19.90 Unspecified osteoarthritis, unspecified site; M48.061 Spinal stenosis, lumbar region without neurogenic claudication; Z87.891 Personal history of nicotine dependence; Y83.8 Other surgical procedures as the cause of abnormal reaction of the patient, or of later complication, without mention of misadventure at the time of the procedure ==

== ENCOUNTER → 2020-01-05 | Outpatient (CLI) | payer MEDICARE, OTHER | LOC: M.WC 01:37 | DX: T81.89XD Other complications of procedures, not elsewhere classified, subsequent encounter (principal); I87.312 Chronic venous hypertension (idiopathic) with ulcer of left lower extremity; E11.622 Type 2 diabetes mellitus with other skin ulcer; L97.821 Non-pressure chronic ulcer of other part of left lower leg limited to breakdown of skin; E11.40 Type 2 diabetes mellitus with diabetic neuropathy, unspecified; E78.5 Hyperlipidemia, unspecified; I48.91 Unspecified atrial fibrillation; J44.9 Chronic obstructive pulmonary disease, unspecified; K21.9 Gastro-esophageal reflux disease without esophagitis; M48.061 Spinal stenosis, lumbar region without neurogenic claudication; M19.90 Unspecified osteoarthritis, unspecified site; G47.00 Insomnia, unspecified; Z87.891 Personal history of nicotine dependence; Y83.8 Other surgical procedures as the cause of abnormal reaction of the patient, or of later complication, without mention of misadventure at the time of the procedure ==

== ENCOUNTER → 2020-01-12 | Outpatient (CLI) | payer MEDICARE, OTHER | LOC: M.WC 04:36 | DX: T81.89XD Other complications of procedures, not elsewhere classified, subsequent encounter (principal); I87.312 Chronic venous hypertension (idiopathic) with ulcer of left lower extremity; E11.622 Type 2 diabetes mellitus with other skin ulcer; L97.822 Non-pressure chronic ulcer of other part of left lower leg with fat layer exposed; I87.2 Venous insufficiency (chronic) (peripheral); E11.40 Type 2 diabetes mellitus with diabetic neuropathy, unspecified; E78.5 Hyperlipidemia, unspecified; I10 Essential (primary) hypertension; I48.91 Unspecified atrial fibrillation; J44.9 Chronic obstructive pulmonary disease, unspecified; K21.9 Gastro-esophageal reflux disease without esophagitis; M48.061 Spinal stenosis, lumbar region without neurogenic claudication; M19.90 Unspecified osteoarthritis, unspecified site; G47.00 Insomnia, unspecified; Z87.891 Personal history of nicotine dependence; Z79.01 Long term (current) use of anticoagulants; Y83.8 Other surgical procedures as the cause of abnormal reaction of the patient, or of later complication, without mention of misadventure at the time of the procedure ==

== ENCOUNTER → 2020-01-20 | Outpatient (CLI) | payer MEDICARE, OTHER | LOC: M.WC 04:14 | DX: T81.89XD Other complications of procedures, not elsewhere classified, subsequent encounter (principal); I87.312 Chronic venous hypertension (idiopathic) with ulcer of left lower extremity; E11.622 Type 2 diabetes mellitus with other skin ulcer; L97.821 Non-pressure chronic ulcer of other part of left lower leg limited to breakdown of skin; E11.40 Type 2 diabetes mellitus with diabetic neuropathy, unspecified; E78.5 Hyperlipidemia, unspecified; I10 Essential (primary) hypertension; I48.91 Unspecified atrial fibrillation; J44.9 Chronic obstructive pulmonary disease, unspecified; M19.90 Unspecified osteoarthritis, unspecified site; M48.061 Spinal stenosis, lumbar region without neurogenic claudication; K21.9 Gastro-esophageal reflux disease without esophagitis; G47.00 Insomnia, unspecified; Z87.891 Personal history of nicotine dependence; Y83.8 Other surgical procedures as the cause of abnormal reaction of the patient, or of later complication, without mention of misadventure at the time of the procedure ==

== ENCOUNTER → 2020-01-26 | Outpatient (CLI) | payer MEDICARE, OTHER | LOC: M.WC 02:21 | DX: T81.89XD Other complications of procedures, not elsewhere classified, subsequent encounter (principal); I87.312 Chronic venous hypertension (idiopathic) with ulcer of left lower extremity; L97.828 Non-pressure chronic ulcer of other part of left lower leg with other specified severity; E11.40 Type 2 diabetes mellitus with diabetic neuropathy, unspecified; E78.5 Hyperlipidemia, unspecified; I48.91 Unspecified atrial fibrillation; J44.9 Chronic obstructive pulmonary disease, unspecified; K21.9 Gastro-esophageal reflux disease without esophagitis; M48.061 Spinal stenosis, lumbar region without neurogenic claudication; M19.90 Unspecified osteoarthritis, unspecified site; Z87.891 Personal history of nicotine dependence; Y83.8 Other surgical procedures as the cause of abnormal reaction of the patient, or of later complication, without mention of misadventure at the time of the procedure ==

== ENCOUNTER → 2020-02-24 | Outpatient (CLI) | payer MEDICARE, OTHER ==
[2020-02-24 13:52] LABS: ABSOLUTE BASOPHILS 0.1 thou/uL (0.0-0.2); ABSOLUTE EOSINOPHILS 0.1 thou/uL (0.0-0.7); ABSOLUTE LYMPHOCYTES 0.8 thou/uL (0.8-5.3); ABSOLUTE MONOCYTES 0.4 thou/uL (0.0-1.2); ABSOLUTE NEUTROPHILS 5.2 thou/uL (1.6-8.1); BASOPHILS 0.9 %; EOSINOPHILS 1.4 %; HEMOGLOBIN 14.5 gm/dL (14.0-18.0); LYMPHOCYTES 12.2 %; MCH 30.5 pg (26.0-34.0); MCHC 34.5 g/dL (28.0-37.0); MCV 88.4 fL (80.0-100.0); MONOCYTES 6.8 %; MPV 6.7 fl. (7.2-11.1); NUCLEATED RBCS 0 /100WBC; PLATELET COUNT* 151 thou/uL (150-400); POLYS 78.7 %; RBC 4.75 mil/uL (4.50-6.00); RDW-CV 14.8 % (10.5-14.5); WBC 6.6 thou/uL (4.0-11.0)
[2020-02-24 14:13] LABS: ALBUMIN 3.8 g/dL (3.4-5.0); CREATININE 0.7 mg/dL (0.6-1.3); POTASSIUM 4.4 mmol/L (3.5-5.1); TOTAL BILIRUBIN 0.7 mg/dL (<0.1-1.0); TOTAL PROTEIN 7.2 g/dL (6.4-8.2)
== END ==
LOC: M.CT 13:32
PROVIDERS: ATTEND Family Medicine
DX: K57.30 Diverticulosis of large intestine without perforation or abscess without bleeding (principal); I25.810 Atherosclerosis of coronary artery bypass graft(s) without angina pectoris; I10 Essential (primary) hypertension; M47.896 Other spondylosis, lumbar region; M51.36 Other intervertebral disc degeneration, lumbar region; R11.0 Nausea; R10.32 Left lower quadrant pain

== ENCOUNTER → 2020-05-21 | Outpatient (CLI) | payer MEDICARE, OTHER ==
[2020-05-21 09:58] LABS: ALBUMIN 3.4 g/dL (3.4-5.0); CALCIUM 8.7 mg/dL (8.5-10.1); CREATININE 0.9 mg/dL (0.6-1.3); TOTAL BILIRUBIN 0.8 mg/dL (<0.1-1.0); TOTAL PROTEIN 6.5 g/dL (6.4-8.2)
== END ==
LOC: M.CT 09:26 → M.LAB 10:00 → M.CT 11:00
PROVIDERS: ATTEND Family Medicine
DX: I51.7 Cardiomegaly (principal); I10 Essential (primary) hypertension; R04.2 Hemoptysis; I77.810 Thoracic aortic ectasia; M25.78 Osteophyte, vertebrae

== ENCOUNTER 2020-07-18 18:49 | Inpatient (IN) | payer MEDICARE, OTHER ==
[~2020-07-18] VITALS: Ht 185.4 cm; Wt 106.0 kg
--- NOTE | ~2020-07-18 | CON ---
[address] [address] CONSULTATION Name: DAVIN CAAL Room: [address] IN M.R.#: [id number] Admission: 07/18/20 Attend Phys: Nathaly Martinez Discharge: Date of : 31 Report #: [id number] THIS REPORT FOR: //name// cc: Kira Matt MD, Katrina MD ~ DATE OF SERVICE: 07/20/2020 Consult has been requested by Dr. Kwong. INDICATION FOR CONSULTATION: Hemoptysis. HISTORY OF PRESENT ILLNESS: This is an 89-year-old gentleman. He carries a diagnosis of COPD; however, it is entirely possible that he has bronchial asthma instead regardless, he does appear to have an obstructive lung disease. He does have a remote history of smoking. The patient also has atrial fibrillation and he is anticoagulated with Coumadin. The patient is now admitted with respiratory complaints. He says he had been feeling dizzy for a week, also did have a fever up to 100.9 degrees Fahrenheit. He does report that he had been more short of breath and had been using albuterol more frequently. The patient also does report having had small amounts of hemoptysis. He says that there have been streaks of blood in his mucus and some of priyanka blood also was coughed up. The patient states that intermittently he has had the same problem in the past as well over the last 2 years. He at this time is not describing any upper respiratory complaints. There is no swelling of lower extremities. There is no calf pain. He answers to the negative for 12 questions for review of systems. PAST MEDICAL HISTORY: Obstructive lung disease either COPD or asthma, coronary artery disease, status post CABG, atrial fibrillation on Coumadin, testicle surgery, laparoscopic cholecystectomy, bilateral knee replacements, GERD, hypertension, skin lesions surgically excised, hyperlipidemia, diabetes. The patient's echocardiogram from last year shows a left ventricular ejection fraction of 50-55% without elevation in right heart pressures. CURRENT MEDICATIONS: List in [facility] reviewed. HOME MEDICATIONS: List also in [employer] reviewed. Also, see discussion above. ALLERGIES: HE REPORTED TO BE ALLERGIC TO PENICILLIN WELL CIPRO; however, it is noted that he is able to tolerate cephalosporins without problems. FAMILY HISTORY: There is no pertinent family history known [place] [address] CONSULTATION Name: DAVIN CAAL Room: [address]#: [id number] Admission: 07/18/20 Attend Phys: Nathaly Martinez Discharge: Date of : 31 Report #: [id number] SOCIAL HISTORY: The patient says he was a heavy smoker when he was younger, more than a pack a day, but he says that he discontinued more than 40 years ago and since then he has been a nonsmoker. No known history of heavy alcohol use or illegal drug use. PHYSICAL EXAMINATION: GENERAL: Alert, awake and oriented, does not appear to be in any distress. VITAL SIGNS: Has a pulse of 95 and a blood pressure of 150/97, saturating 94%. He is on room air. His respiratory rate is 17-18. His heart rate is 95. He is afebrile with a temperature of 36.7. Initially, he did have a fever of 37.6. HEENT: Head is normocephalic and atraumatic. Pupils are equal and reactive. There is no throat erythema. There is no thrush in his throat. NECK: Does not show raised JVP, asymmetry, mass or lymph nodes. CHEST: Symmetrical expansion on inspection and palpation. On auscultation, breath sounds are mildly decreased bilaterally. No added sounds. HEART: Irregular, no murmur. ABDOMEN: Soft and nontender. EXTREMITIES: Lower extremities show no edema, no calf tenderness. SKIN: Dry and intact. NEUROLOGICAL: Moves all extremities bilaterally equally and spontaneously. There is no focal deficit identified. LABORATORY DATA: The patient did have a CT of the chest, I reviewed both the films as well as the report. There is mild atelectasis at bilateral lung bases. There are some subpleural blebs as well. The aorta is prominent. There are no large infiltrates identified. The patient's lab work is in [employer], this was reviewed. Note that his COVID-19 antigen as well as PCR are negative. ASSESSMENT AND PLAN: 1. Hemoptysis. The most likely etiology of his hemoptysis is acute bacterial bronchitis. He may have had hemoptysis previously and during a respiratory illness as well and this may be exacerbated by the fact that he is anticoagulated with Coumadin. The upper airway causes of hemoptysis are not ruled out either. At this time, we would not consider bronchoscopy as performing a bronchoscopy at this time is likely to lead to more hemorrhage. I would recommend treating with broad-spectrum antibiotics as well as treating him with a steroid as well, which will improve hemoptysis. If his symptoms persist then we can consider bronchoscopy later on after holding his Coumadin as an outpatient. Also suggest that he be seen by an ENT physician as an outpatient. At this time, I agree with tapering his steroid. In fact if he continues to improve, we will consider switching him over to a prednisone taper tomorrow morning. I did, however, order one additional dose of Solu-Medrol this evening. 2. Acute bacterial bronchitis. I agree with azithromycin as well as ceftriaxone. Azithromycin can be changed to p.o. Recommend total of [address] [address] CONSULTATION Name: DAVIN CAAL Room: [address] IN [facility].#: [id number] Admission: 07/18/20 Attend Phys: Nathaly Martinez Discharge: Date of : 31 Report #: [id number] I do recommend treating him with cephalosporin for about a week. Agree with ceftriaxone. If he is ready for discharge tomorrow then this could be switched over to cefdinir in the a.m. 3. Obstructive lung disease. The patient does appear to have either chronic obstructive pulmonary disease or bronchial asthma. I ordered nebulized bronchodilators. He takes Symbicort at home. I can evaluate further as an outpatient and obtain a pulmonary function test later. 4. Coronary artery disease, status post coronary artery bypass grafting/atrial fibrillation. Note that he is on anticoagulation with Coumadin. Thanks for this consultation. By: 1506 1528Aamelia Nieves MD /sami
[2020-07-18 19:01] VITALS: BP 167/78
[2020-07-18] MEDS ORDERED: WARFARIN SODIU7.5 MG PO (19:05)
[2020-07-18] MEDS ORDERED: EUTHYROX25 MCG PO (19:05)
[2020-07-18 19:39] LABS: HEMATOCRIT 40.2 % (42.0-52.0); HEMOGLOBIN 13.8 gm/dL (14.0-18.0); MCH 30.2 pg (26.0-34.0); MCHC 34.4 g/dL (28.0-37.0); MCV 87.6 fL (80.0-100.0); MPV 6.5 fl. (7.2-11.1); NUCLEATED RBCS 0 /100WBC; PLATELET COUNT* 126 thou/uL (150-400); RBC 4.59 mil/uL (4.50-6.00); RDW-CV 14.8 % (10.5-14.5); WBC 7.6 thou/uL (4.0-11.0)
[2020-07-18 19:49] LABS: CALCIUM 7.9 mg/dL (8.5-10.1); CREATININE 0.9 mg/dL (0.6-1.3); POTASSIUM 4.7 mmol/L (3.5-5.1)
[2020-07-18 19:52] LABS: INR 2.1; PROTIME 21.4 Seconds (9.20-11.50)
[2020-07-18 20:00] LABS: ALBUMIN 3.4 g/dL (3.4-5.0); MAGNESIUM 1.7 mg/dL (1.8-2.4); TOTAL BILIRUBIN 0.9 mg/dL (<0.1-1.0); TOTAL PROTEIN 6.7 g/dL (6.4-8.2)
[2020-07-18 20:08] LABS: ABSOLUTE EOSINOPHILS 0.1 thou/uL (0.0-0.7); ABSOLUTE LYMPHOCYTES 0.5 thou/uL (0.8-5.3); ABSOLUTE MONOCYTES 0.5 thou/uL (0.0-1.2); ABSOLUTE NEUTROPHILS 6.6 thou/uL (1.6-8.1); PLATELET ESTIMATE DECREASED
[2020-07-18 20:14] LABS: URINE BILIRUBIN NEGATIVE (Negative); URINE BLOOD NEGATIVE (Negative); URINE CLARITY CLEAR; URINE COLOR YELLOW; URINE GLUCOSE-RANDOM NEGATIVE (Negative); URINE KETONES NEGATIVE (Negative); URINE LEUKOCYTES-REFLEX NEGATIVE (Negative); URINE NITRITE-REFLEX NEGATIVE (Negative); URINE PROTEIN NEGATIVE (Negative); URINE SPECIFIC GRAVITY 1.015 (1.005-1.030); URINE UROBILINOGEN 0.2 E.U./dl (0.2-1.0)
[2020-07-18 22:15] VITALS: BP 145/70
[2020-07-18 22:37] VITALS: BP 140/75
[2020-07-18 22:47] LABS: INFLUENZA A ANTIGEN Negative (Negative); INFLUENZA B ANTIGEN Negative (Negative)
[2020-07-18] MEDS ORDERED: SINGULAIR 10 MG10 M1 PO (23:15)
[2020-07-18] MEDS ORDERED: CLARITIN10 M3 PO (23:16)
[2020-07-18] MEDS ORDERED: COQ-1030 MG (23:16)
[2020-07-18] MEDS ORDERED: FLONASE 0.05%50 MCG NASAL (23:16)
[2020-07-18] MEDS ORDERED: MUCINEX600 MG PO (23:17)
[2020-07-18] MEDS ORDERED: GLUCOSAMINE1000 MG (23:18)
[2020-07-19 04:00] VITALS: BP 118/74
[2020-07-19 07:40] VITALS: BP 148/81
[2020-07-19 12:00] VITALS: BP 111/66
[2020-07-19 18:36] VITALS: BP 143/81
[2020-07-19 23:30] VITALS: BP 160/92
[2020-07-20 04:00] VITALS: BP 135/79
[2020-07-20 07:02] LABS: HEMATOCRIT 42.4 % (42.0-52.0); HEMOGLOBIN 14.5 gm/dL (14.0-18.0); MCH 29.5 pg (26.0-34.0); MCHC 34.2 g/dL (28.0-37.0); MCV 86.3 fL (80.0-100.0); MPV 7.6 fl. (7.2-11.1); RBC 4.91 mil/uL (4.50-6.00); RDW-CV 14.7 % (10.5-14.5); WBC 4.8 thou/uL (4.0-11.0)
[2020-07-20 07:17] LABS: INR 1.9; PROTIME 19.3 Seconds (9.20-11.50)
[2020-07-20 07:37] LABS: ALBUMIN 3.6 g/dL (3.4-5.0); CALCIUM 8.3 mg/dL (8.5-10.1); CREATININE 0.7 mg/dL (0.6-1.3); MAGNESIUM 2.1 mg/dL (1.8-2.4); POTASSIUM 4.3 mmol/L (3.5-5.1); TOTAL BILIRUBIN 0.8 mg/dL (<0.1-1.0); TOTAL PROTEIN 7.1 g/dL (6.4-8.2)
[2020-07-20 07:45] VITALS: BP 150/97
--- NOTE | 2020-07-20 08:58 | EKG ---
[place] [address] ELECTROCARDIOGRAM REPORT Name: TENDAVIN Nathaly Room: [address] ADM IN .R.#: [id number] Admission: 07/18/20 Attend Phys: Roxanne Bhagat Discharge: Date of : 32 Date of Service: 07/18/20 1909 Report #: [id number] THIS REPORT FOR: //name// [facility] ED Test Date: 2020-07-18 Test Time: 19:09:23 Pat Name: DAVIN CAAL Department: Room: [facility] Gender: M Field Marketing Lead: [place] : 1930 Requested By: Bhavya Rose Order Number: [id number] MD: Stef Macedo Measurements Intervals [place] Rate: 61 P: [place]: QRS: -8 QRSD: 138 T: 5 QT: 411 QTc: 414 Interpretive Statements Atrial fibrillation Right bundle branch block Compared to ECG 10/08/2019 15:28:16 No significant changes Electronically Signed On 07-20-2020 8:58:09 HAT RENOVATOR by Stef Macedo [email or web address] <ELECTRONICALLY SIGNED> By: Khurram Macedo MD, [facility] 07/20/20 0858 1909 08 Khurram Macedo MD, [facility] /EPI
[2020-07-20 16:32] VITALS: BP 157/93
[2020-07-20 20:00] VITALS: BP 168/86
[2020-07-21 06:55] LABS: HEMATOCRIT 41.4 % (42.0-52.0); HEMOGLOBIN 14.2 gm/dL (14.0-18.0); MCH 29.7 pg (26.0-34.0); MCHC 34.2 g/dL (28.0-37.0); MCV 86.7 fL (80.0-100.0); MPV 6.9 fl. (7.2-11.1); NUCLEATED RBCS 0 /100WBC; PLATELET COUNT* 150 thou/uL (150-400); RBC 4.78 mil/uL (4.50-6.00); RDW-CV 14.5 % (10.5-14.5); WBC 9.6 thou/uL (4.0-11.0)
[2020-07-21 07:06] LABS: CALCIUM 8.9 mg/dL (8.5-10.1); CREATININE 0.8 mg/dL (0.6-1.3); MAGNESIUM 2.4 mg/dL (1.8-2.4); POTASSIUM 4.4 mmol/L (3.5-5.1)
[2020-07-21 07:10] LABS: INR 2.5
[2020-07-21] MEDS ORDERED: PREDNISONE10 MG PO (07:44)
[2020-07-21] MEDS ORDERED: CEFDINIR300 MG PO (07:44)
[2020-07-21 07:45] VITALS: BP 160/94
[2020-07-21 08:08] LABS: ABSOLUTE LYMPHOCYTES 0.5 thou/uL (0.8-5.3); ABSOLUTE MONOCYTES 0.4 thou/uL (0.0-1.2); ABSOLUTE NEUTROPHILS 8.7 thou/uL (1.6-8.1); METAMYELOCYTES 1 %; PLATELET ESTIMATE ADEQUATE
[2020-07-21 11:57] VITALS: BP 160/94
== END 2020-07-21 12:15 | disposition home or self-care (01) | DRG 177 ==
LOC: M.ERS 18:49 → M.ORTHSURG 21:26 → M.TBA-ER 21:26 → M.ORTHSURG 22:27 → M.3W 07-20 17:49
PROVIDERS: Emergency Medicine; Internal Medicine; Internal Medicine Critical Care Medicine; ADMIT Internal Medicine; ATTEND Internal Medicine
DX: J15.6 Pneumonia due to other Gram-negative bacteria (principal); J96.01 Acute respiratory failure with hypoxia; E87.1 Hypo-osmolality and hyponatremia; R04.2 Hemoptysis; J44.1 Chronic obstructive pulmonary disease with (acute) exacerbation; J44.0 Chronic obstructive pulmonary disease with (acute) lower respiratory infection; Z96.653 Presence of artificial knee joint, bilateral; I10 Essential (primary) hypertension; K21.9 Gastro-esophageal reflux disease without esophagitis; I48.91 Unspecified atrial fibrillation; Z20.828 Contact with and (suspected) exposure to other viral communicable diseases; E11.9 Type 2 diabetes mellitus without complications; J45.909 Unspecified asthma, uncomplicated; I25.10 Atherosclerotic heart disease of native coronary artery without angina pectoris; J20.9 Acute bronchitis, unspecified; E78.5 Hyperlipidemia, unspecified; Z87.891 Personal history of nicotine dependence; Z90.49 Acquired absence of other specified parts of digestive tract; Z95.1 Presence of aortocoronary bypass graft; Z88.0 Allergy status to penicillin; Z88.8 Allergy status to other drugs, medicaments and biological substances; Z79.899 Other long term (current) drug therapy

== ENCOUNTER 2020-08-16 09:46 | Emergency (ER) | payer MEDICARE, OTHER ==
[~2020-08-16] VITALS: Ht 185.4 cm; Wt 100.7 kg
[~2020-08-16 09:46] MED LIST changes: +CLARITIN10 M3 PO; +COQ-1030 MG; +EUTHYROX25 MCG PO; +GLUCOSAMINE1000 MG; +PREDNISONE10 MG PO; +WARFARIN SODIU7.5 MG PO
[2020-08-16 10:44] LABS: HEMATOCRIT 41.1 % (42.0-52.0); HEMOGLOBIN 13.9 gm/dL (14.0-18.0); MCH 30.2 pg (26.0-34.0); MCHC 33.9 g/dL (28.0-37.0); MPV 6.8 fl. (7.2-11.1); NUCLEATED RBCS 0 /100WBC; PLATELET COUNT* 105 thou/uL (150-400); RBC 4.62 mil/uL (4.50-6.00); RDW-CV 15.4 % (10.5-14.5); WBC 7.1 thou/uL (4.0-11.0)
[2020-08-16 10:51] LABS: CALCIUM 8.6 mg/dL (8.5-10.1); CREATININE 0.8 mg/dL (0.6-1.3); POTASSIUM 4.3 mmol/L (3.5-5.1)
[2020-08-16 10:54] LABS: APTT 37.3 Seconds (25.0-31.3); INR 2.2; PROTIME 22.2 Seconds (9.20-11.50)
[2020-08-16 11:07] LABS: ALBUMIN 3.2 g/dL (3.4-5.0); TOTAL BILIRUBIN 0.9 mg/dL (<0.1-1.0); TOTAL PROTEIN 6.2 g/dL (6.4-8.2)
[2020-08-16 11:23] LABS: ABSOLUTE EOSINOPHILS 0.2 thou/uL (0.0-0.7); ABSOLUTE LYMPHOCYTES 0.5 thou/uL (0.8-5.3); ABSOLUTE MONOCYTES 0.1 thou/uL (0.0-1.2); ABSOLUTE NEUTROPHILS 6.2 thou/uL (1.6-8.1)
[2020-08-16 11:24] LABS: PLATELET ESTIMATE DECREASED
[2020-08-16] MEDS ORDERED: PREDNISONE50 MG PO (12:46)
[2020-08-16] MEDS ORDERED: TESSALON PERLE100 M1 PO (12:46)
[2020-08-16 13:18] LABS: pH ND (7.340-7.450)
[2020-08-16 13:19] LABS: PCO2 ND mmHg (35.0-45.0); PO2 ND mmHg (75.0-100.0)
[2020-08-16 13:20] LABS: BE ND mmol/L (-2 to +3)
[2020-08-16 13:27] VITALS: BP 140/85
--- NOTE | 2020-08-16 15:48 | EKG ---
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: [facility] : 1930 Requested By: Javier Kimble Order Number: [id number] MD: Nilson Downs Measurements Intervals [place] Rate: 61 P: [place]: QRS: 43 QRSD: 136 T: 17 QT: 429 QTc: 432 Interpretive Statements Atrial fibrillation Right bundle branch block Compared to ECG 07/18/2020 19:09:23 No significant changes Electronically Signed On 08-16-2020 15:47:59 WOMEN'S HEALTH CARE NURSE PRACTITIONER by Nilson Downs [email or web address] <ELECTRONICALLY SIGNED> By: Nilson Downs MD, [facility] 08/16/20 1547 1016 1016 Nilson Downs MD, [facility] /EPI
== END 2020-08-16 13:29 | disposition home or self-care (01) ==
LOC: M.ERS 09:46
PROVIDERS: Emergency Medicine Emergency Medical Services
DX: R05 Cough (principal); Z20.828 Contact with and (suspected) exposure to other viral communicable diseases; J44.9 Chronic obstructive pulmonary disease, unspecified; I10 Essential (primary) hypertension; K21.9 Gastro-esophageal reflux disease without esophagitis; I48.91 Unspecified atrial fibrillation; E78.5 Hyperlipidemia, unspecified; E11.9 Type 2 diabetes mellitus without complications; Z96.653 Presence of artificial knee joint, bilateral; Z87.891 Personal history of nicotine dependence; Z88.1 Allergy status to other antibiotic agents; Z88.0 Allergy status to penicillin; Z90.49 Acquired absence of other specified parts of digestive tract

== ENCOUNTER 2020-09-25 16:51 | Emergency (ER) | payer MEDICARE, OTHER ==
[~2020-09-25] VITALS: Ht 185.4 cm; Wt 102.1 kg
[~2020-09-25 16:51] MED LIST changes: +TESSALON PERLE100 M1 PO
[2020-09-25 17:38] LABS: ABSOLUTE BASOPHILS 0.1 thou/uL (0.0-0.2); ABSOLUTE EOSINOPHILS 0.1 thou/uL (0.0-0.7); ABSOLUTE LYMPHOCYTES 0.9 thou/uL (0.8-5.3); ABSOLUTE MONOCYTES 0.5 thou/uL (0.0-1.2); ABSOLUTE NEUTROPHILS 8.4 thou/uL (1.6-8.1); BASOPHILS 0.6 %; EOSINOPHILS 0.9 %; HEMATOCRIT 42.6 % (42.0-52.0); HEMOGLOBIN 14.4 gm/dL (14.0-18.0); MCH 30.1 pg (26.0-34.0); MCHC 33.7 g/dL (28.0-37.0); MCV 89.1 fL (80.0-100.0); MPV 7.1 fl. (7.2-11.1); NUCLEATED RBCS 0 /100WBC; PLATELET COUNT* 148 thou/uL (150-400); POLYS 84.5 %; RBC 4.78 mil/uL (4.50-6.00); RDW-CV 15.4 % (10.5-14.5); WBC 9.9 thou/uL (4.0-11.0)
[2020-09-25 17:47] LABS: CALCIUM 8.7 mg/dL (8.5-10.1); CREATININE 0.9 mg/dL (0.6-1.3); POTASSIUM 3.9 mmol/L (3.5-5.1)
[2020-09-25 17:59] LABS: ALBUMIN 3.4 g/dL (3.4-5.0); TOTAL BILIRUBIN 0.6 mg/dL (<0.1-1.0); TOTAL PROTEIN 6.4 g/dL (6.4-8.2)
[2020-09-25] MEDS ORDERED: PREDNISONE 20 M20 MG PO (19:06)
[2020-09-25] MEDS ORDERED: PEPCID20 MG PO (19:06)
[2020-09-25 19:31] LABS: INR 1.9; PROTIME 19.3 Seconds (9.20-11.50)
[2020-09-25 20:26] VITALS: BP 142/86
--- NOTE | 2020-09-26 15:06 | EKG ---
[place] [address] ELECTROCARDIOGRAM REPORT Name: TENDAVIN Andersen Room: [facility]#: [id number] Admission: 09/25/20 Attend Phys: Discharge: 09/25/20 Date of : 32 Date of Service: 09/25/20 1707 Report #: [id number] THIS REPORT FOR: //name// [facility] ED Test Date: 2020-09-25 Test Time: 17:07:02 Pat Name: DAVIN CAAL Department: Room: Gender: Stencil Typist: : 1930 Requested By: Immanuel Waed Order Number: [id number] MD: David Manning Measurements Intervals [place] Rate: 73 P: [place]: QRS: 42 QRSD: 138 T: 19 QT: 403 QTc: 444 Interpretive Statements Atrial fibrillation Right bundle branch block Compared to ECG 08/16/2020 10:16:59 No significant changes Electronically Signed On 09-26-2020 15:06:43 HEAD OF COMMISSION DEPARTMENT by David Manning [email or web address] <ELECTRONICALLY SIGNED> By: David Manning MD, [facility] 09/26/20 1506 1707 170 David Manning MD, [facility] /EPI
== END 2020-09-25 19:55 | disposition home or self-care (01) ==
LOC: M.ERS 16:51
PROVIDERS: Physician Assistant
DX: R06.00 Dyspnea, unspecified (principal); Z20.828 Contact with and (suspected) exposure to other viral communicable diseases; J44.9 Chronic obstructive pulmonary disease, unspecified; I10 Essential (primary) hypertension; K21.9 Gastro-esophageal reflux disease without esophagitis; I48.91 Unspecified atrial fibrillation; E78.5 Hyperlipidemia, unspecified; E11.9 Type 2 diabetes mellitus without complications; Z87.891 Personal history of nicotine dependence; Z88.0 Allergy status to penicillin; Z88.1 Allergy status to other antibiotic agents; Z96.653 Presence of artificial knee joint, bilateral; Z90.49 Acquired absence of other specified parts of digestive tract

== ENCOUNTER 2020-10-13 07:25 | Emergency (ER) | payer MEDICARE, OTHER ==
[~2020-10-13] VITALS: Ht 185.4 cm; Wt 102.1 kg
[~2020-10-13 07:25] MED LIST changes: +PEPCID20 MG PO
[2020-10-13] MEDS ORDERED: KEFLEX500 M1 PO (08:04)
[2020-10-13 08:14] VITALS: BP 158/87
[2020-10-14] MEDS ORDERED: CLEOCIN HCL300 MG PO (09:32)
[2020-10-14] MEDS ORDERED: PREDNISONE 20 M20 M1 PO (09:32)
== END 2020-10-13 08:10 | disposition home or self-care (01) ==
LOC: M.ERS 07:25
DX: R59.1 Generalized enlarged lymph nodes (principal); J44.9 Chronic obstructive pulmonary disease, unspecified; I10 Essential (primary) hypertension; K21.9 Gastro-esophageal reflux disease without esophagitis; I48.91 Unspecified atrial fibrillation; E78.5 Hyperlipidemia, unspecified; E11.9 Type 2 diabetes mellitus without complications; Z87.891 Personal history of nicotine dependence; Z88.0 Allergy status to penicillin; Z88.1 Allergy status to other antibiotic agents; Z96.653 Presence of artificial knee joint, bilateral; Z90.49 Acquired absence of other specified parts of digestive tract

== ENCOUNTER 2020-10-14 08:32 | Emergency (ER) | payer MEDICARE, OTHER ==
[~2020-10-14] VITALS: Ht 185.4 cm; Wt 102.1 kg
[2020-10-14 09:26] LABS: HEMATOCRIT 45.4 % (42.0-52.0); HEMOGLOBIN 15.1 gm/dL (14.0-18.0); MCH 29.6 pg (26.0-34.0); MCHC 33.3 g/dL (28.0-37.0); MCV 88.9 fL (80.0-100.0); NUCLEATED RBCS 0 /100WBC; PLATELET COUNT* 131 thou/uL (150-400); RBC 5.11 mil/uL (4.50-6.00); RDW-CV 15.4 % (10.5-14.5); WBC 10.2 thou/uL (4.0-11.0)
[2020-10-14] MEDS ORDERED: CLEOCIN HCL300 MG PO (09:32)
[2020-10-14] MEDS ORDERED: PREDNISONE 20 M20 M1 PO (09:32)
[2020-10-14 09:46] LABS: APTT 35.3 Seconds (25.0-31.3); INR 2.3
[2020-10-14 09:49] LABS: CALCIUM 8.9 mg/dL (8.5-10.1); CREATININE 0.9 mg/dL (0.6-1.3); POTASSIUM 4.1 mmol/L (3.5-5.1)
[2020-10-14 09:54] LABS: ALBUMIN 3.8 g/dL (3.4-5.0); TOTAL BILIRUBIN 1.2 mg/dL (<0.1-1.0); TOTAL PROTEIN 6.9 g/dL (6.4-8.2)
[2020-10-14 10:10] LABS: ABSOLUTE LYMPHOCYTES 1.4 thou/uL (0.8-5.3); ABSOLUTE MONOCYTES 0.5 thou/uL (0.0-1.2); ABSOLUTE NEUTROPHILS 8.3 thou/uL (1.6-8.1); ATYPICAL LYMPHS 1 %; PLATELET ESTIMATE ADEQUATE
[2020-10-14 10:27] VITALS: BP 156/90
--- NOTE | 2020-10-14 17:39 | EKG ---
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 Sciences Professor: [facility] : 1930 Requested By: Jeffrey Sanders Order Number: [id number] MD: David Manning Measurements Intervals [place] Rate: 72 P: [place]: QRS: -9 QRSD: 145 T: 5 QT: 399 QTc: 437 Interpretive Statements Atrial fibrillation Right bundle branch block Compared to ECG 09/25/2020 17:07:02 No significant changes Electronically Signed On 10-14-2020 17:39:46 SIGNALS INTELLIGENCE ANALYST by David Manning [email or web address] <ELECTRONICALLY SIGNED> By: David Manning MD, FAC 10/14/20 1739 0913 2 David Manning MD, [facility] /EPI
== END 2020-10-14 10:28 | disposition home or self-care (01) ==
LOC: M.ERS 08:32
PROVIDERS: Family Medicine
DX: R42 Dizziness and giddiness (principal); T36.1X5A Adverse effect of cephalosporins and other beta-lactam antibiotics, initial encounter; R11.0 Nausea; R07.89 Other chest pain; R05 Cough; R09.3 Abnormal sputum; J44.9 Chronic obstructive pulmonary disease, unspecified; I10 Essential (primary) hypertension; K21.9 Gastro-esophageal reflux disease without esophagitis; I48.91 Unspecified atrial fibrillation; E78.5 Hyperlipidemia, unspecified; E11.9 Type 2 diabetes mellitus without complications; Z96.653 Presence of artificial knee joint, bilateral; Z90.49 Acquired absence of other specified parts of digestive tract; Z98.61 Coronary angioplasty status; Z79.899 Other long term (current) drug therapy; Z79.01 Long term (current) use of anticoagulants; Z88.0 Allergy status to penicillin; Z88.1 Allergy status to other antibiotic agents; Z87.891 Personal history of nicotine dependence; Y92.89 Other specified places as the place of occurrence of the external cause

== ENCOUNTER → 2020-10-25 | Outpatient (CLI) | payer MEDICARE, OTHER | LOC: M.WC 08:26 | PROVIDERS: ATTEND Surgery | DX: S61.511D Laceration without foreign body of right wrist, subsequent encounter (principal); S81.011D Laceration without foreign body, right knee, subsequent encounter; T79.8XXD Other early complications of trauma, subsequent encounter; E78.5 Hyperlipidemia, unspecified; E11.40 Type 2 diabetes mellitus with diabetic neuropathy, unspecified; G47.00 Insomnia, unspecified; I10 Essential (primary) hypertension; I48.91 Unspecified atrial fibrillation; I87.2 Venous insufficiency (chronic) (peripheral); J44.9 Chronic obstructive pulmonary disease, unspecified; K21.9 Gastro-esophageal reflux disease without esophagitis; M48.061 Spinal stenosis, lumbar region without neurogenic claudication; M19.90 Unspecified osteoarthritis, unspecified site; Z87.891 Personal history of nicotine dependence; X58.XXXD Exposure to other specified factors, subsequent encounter ==

== ENCOUNTER → 2020-11-01 | Outpatient (CLI) | payer MEDICARE, OTHER | LOC: M.WC 08:34 | PROVIDERS: ATTEND Surgery | DX: S61.511D Laceration without foreign body of right wrist, subsequent encounter (principal); S81.011D Laceration without foreign body, right knee, subsequent encounter; T79.8XXD Other early complications of trauma, subsequent encounter; E11.40 Type 2 diabetes mellitus with diabetic neuropathy, unspecified; E78.5 Hyperlipidemia, unspecified; G47.00 Insomnia, unspecified; I10 Essential (primary) hypertension; I48.91 Unspecified atrial fibrillation; I87.2 Venous insufficiency (chronic) (peripheral); J44.9 Chronic obstructive pulmonary disease, unspecified; K21.9 Gastro-esophageal reflux disease without esophagitis; M48.061 Spinal stenosis, lumbar region without neurogenic claudication; M19.90 Unspecified osteoarthritis, unspecified site; Z87.891 Personal history of nicotine dependence; X58.XXXD Exposure to other specified factors, subsequent encounter ==

== ENCOUNTER → 2020-11-08 | Outpatient (CLI) | payer MEDICARE, OTHER | LOC: M.WC 08:19 | PROVIDERS: ATTEND Emergency Medicine Undersea and Hyperbaric Medicine | DX: S61.511D Laceration without foreign body of right wrist, subsequent encounter (principal); S81.011D Laceration without foreign body, right knee, subsequent encounter; T79.8XXD Other early complications of trauma, subsequent encounter; E11.40 Type 2 diabetes mellitus with diabetic neuropathy, unspecified; E78.5 Hyperlipidemia, unspecified; G47.00 Insomnia, unspecified; I10 Essential (primary) hypertension; I48.91 Unspecified atrial fibrillation; I87.2 Venous insufficiency (chronic) (peripheral); J44.9 Chronic obstructive pulmonary disease, unspecified; K21.9 Gastro-esophageal reflux disease without esophagitis; M48.061 Spinal stenosis, lumbar region without neurogenic claudication; M19.90 Unspecified osteoarthritis, unspecified site; Z87.891 Personal history of nicotine dependence; X58.XXXD Exposure to other specified factors, subsequent encounter ==

== ENCOUNTER → 2020-12-27 | Outpatient (CLI) | payer MEDICARE, OTHER | LOC: M.WC 07:54 | PROVIDERS: ATTEND Surgery | DX: S61.511D Laceration without foreign body of right wrist, subsequent encounter (principal); S81.011D Laceration without foreign body, right knee, subsequent encounter; T79.8XXD Other early complications of trauma, subsequent encounter; E11.40 Type 2 diabetes mellitus with diabetic neuropathy, unspecified; E78.5 Hyperlipidemia, unspecified; G47.00 Insomnia, unspecified; I10 Essential (primary) hypertension; I48.91 Unspecified atrial fibrillation; I87.2 Venous insufficiency (chronic) (peripheral); J44.9 Chronic obstructive pulmonary disease, unspecified; K21.9 Gastro-esophageal reflux disease without esophagitis; M48.061 Spinal stenosis, lumbar region without neurogenic claudication; M19.90 Unspecified osteoarthritis, unspecified site; Z87.891 Personal history of nicotine dependence; Z98.49 Cataract extraction status, unspecified eye; Z96.659 Presence of unspecified artificial knee joint; Z90.49 Acquired absence of other specified parts of digestive tract; W22.8XXD Striking against or struck by other objects, subsequent encounter ==

== ENCOUNTER → 2020-12-28 | Outpatient (CLI) | payer MEDICARE, OTHER | LOC: M.RAD 13:36 | PROVIDERS: ATTEND Internal Medicine Critical Care Medicine | DX: J45.41 Moderate persistent asthma with (acute) exacerbation (principal) ==

== ENCOUNTER → 2020-12-30 | Outpatient (CLI) | payer MEDICARE, OTHER ==
[~2020-12-30] MED LIST changes: +JANTOVEN5 MG PO
== END ==
LOC: M.WC 07:43
PROVIDERS: ATTEND Surgery
DX: S61.511D Laceration without foreign body of right wrist, subsequent encounter (principal); S41.101D Unspecified open wound of right upper arm, subsequent encounter; T79.8XXD Other early complications of trauma, subsequent encounter; E11.40 Type 2 diabetes mellitus with diabetic neuropathy, unspecified; E78.5 Hyperlipidemia, unspecified; G47.00 Insomnia, unspecified; I10 Essential (primary) hypertension; I48.91 Unspecified atrial fibrillation; I87.2 Venous insufficiency (chronic) (peripheral); J44.9 Chronic obstructive pulmonary disease, unspecified; K21.9 Gastro-esophageal reflux disease without esophagitis; M48.061 Spinal stenosis, lumbar region without neurogenic claudication; M19.90 Unspecified osteoarthritis, unspecified site; Z87.891 Personal history of nicotine dependence; Z98.49 Cataract extraction status, unspecified eye; Z96.659 Presence of unspecified artificial knee joint; Z90.49 Acquired absence of other specified parts of digestive tract; W22.8XXD Striking against or struck by other objects, subsequent encounter

== ENCOUNTER 2020-12-31 12:55 | Emergency (ER) | payer MEDICARE, OTHER ==
[~2020-12-31] VITALS: Ht 185.4 cm; Wt 104.3 kg
[~2020-12-31 12:55] MED LIST changes: -JANTOVEN5 MG PO
[2020-12-31] MEDS ORDERED: JANTOVEN5 MG PO (13:21)
[2020-12-31] MEDS ORDERED: CEFDINIR300 MG PO (13:47)
--- NOTE | 2020-12-31 14:16 | EKG ---
[place] [address] ELECTROCARDIOGRAM REPORT Name: DAVIN CAAL Room: [facility]#: [id number] Admission: 12/31/20 Attend Phys: Discharge: Date of : 32 Date of Service: 12/31/20 1315 Report #: [id number] THIS REPORT FOR: //name// [facility] ED Test Date: 2020-12-31 Test Time: 13:15:30 Pat Name: DAVIN CAAL Department: Room: Gender: Rehabilitation Services Aide: [facility] : 1930 Requested By: Javier Kimble Order Number: [id number] Alyssa MD: Nilson Downs Measurements Intervals [place] Rate: 72 P: [place]: QRS: 57 QRSD: 139 T: 32 QT: 400 QTc: 438 Interpretive Statements Atrial fibrillation Right bundle branch block Compared to ECG 10/14/2020 09:13:00 No significant changes Electronically Signed On 12-31-2020 14:16:50 CDT by Nilson Downs [email or web address] <ELECTRONICALLY SIGNED> By: Nilson Downs MD, [facility] 12/31/20 1416 1315 1315 Nilson Downs MD, FACC /EPI
[2020-12-31 14:51] LABS: INR 1.7; PROTIME 17.2 Seconds (9.20-11.50)
[2020-12-31 15:06] VITALS: BP 164/65
== END 2020-12-31 15:07 | disposition home or self-care (01) ==
LOC: M.ERS 12:55
PROVIDERS: Emergency Medicine Emergency Medical Services
DX: R07.81 Pleurodynia (principal); R07.89 Other chest pain; J44.9 Chronic obstructive pulmonary disease, unspecified; I10 Essential (primary) hypertension; K21.9 Gastro-esophageal reflux disease without esophagitis; I48.91 Unspecified atrial fibrillation; E78.5 Hyperlipidemia, unspecified; E11.9 Type 2 diabetes mellitus without complications; Z88.0 Allergy status to penicillin; Z88.1 Allergy status to other antibiotic agents; Z87.891 Personal history of nicotine dependence; Z96.653 Presence of artificial knee joint, bilateral; Z90.49 Acquired absence of other specified parts of digestive tract; Z95.1 Presence of aortocoronary bypass graft

== ENCOUNTER → 2021-01-03 | Outpatient (CLI) | payer MEDICARE, OTHER ==
[~2021-01-03] MED LIST changes: +JANTOVEN5 MG PO
== END ==
LOC: M.WC 08:52
PROVIDERS: ATTEND Emergency Medicine Undersea and Hyperbaric Medicine
DX: S61.511D Laceration without foreign body of right wrist, subsequent encounter (principal); S41.101D Unspecified open wound of right upper arm, subsequent encounter; T79.8XXD Other early complications of trauma, subsequent encounter; E11.40 Type 2 diabetes mellitus with diabetic neuropathy, unspecified; E78.5 Hyperlipidemia, unspecified; G47.00 Insomnia, unspecified; I10 Essential (primary) hypertension; I48.91 Unspecified atrial fibrillation; I87.2 Venous insufficiency (chronic) (peripheral); J44.9 Chronic obstructive pulmonary disease, unspecified; K21.9 Gastro-esophageal reflux disease without esophagitis; M48.061 Spinal stenosis, lumbar region without neurogenic claudication; M19.90 Unspecified osteoarthritis, unspecified site; Z87.891 Personal history of nicotine dependence; W22.8XXD Striking against or struck by other objects, subsequent encounter

== ENCOUNTER → 2021-01-10 | Outpatient (CLI) | payer MEDICARE, OTHER | LOC: M.WC 07:39 | PROVIDERS: ATTEND Internal Medicine | DX: S41.111D Laceration without foreign body of right upper arm, subsequent encounter (principal); S41.101D Unspecified open wound of right upper arm, subsequent encounter; T79.8XXD Other early complications of trauma, subsequent encounter; E11.40 Type 2 diabetes mellitus with diabetic neuropathy, unspecified; E78.5 Hyperlipidemia, unspecified; G47.00 Insomnia, unspecified; I10 Essential (primary) hypertension; I48.91 Unspecified atrial fibrillation; I87.2 Venous insufficiency (chronic) (peripheral); J44.9 Chronic obstructive pulmonary disease, unspecified; K21.9 Gastro-esophageal reflux disease without esophagitis; M48.061 Spinal stenosis, lumbar region without neurogenic claudication; M19.90 Unspecified osteoarthritis, unspecified site; Z87.891 Personal history of nicotine dependence; W22.8XXD Striking against or struck by other objects, subsequent encounter ==

== ENCOUNTER → 2021-01-13 | Outpatient (CLI) | payer MEDICARE, OTHER ==
--- NOTE | 2021-01-17 08:18 | PF ---
[address] [address] PULMONARY FUNCTION REPORT Name: DAVIN CAAL Room: [facility]#: [id number] Admission: 01/13/21 Attend Phys: Pepe Nieves MD Discharge: Date of : 32 Report #: [id number] THIS REPORT FOR: cc: Kira Matt MD, Katrina MD Pervez,Pepe HUTSON ~ DOC #: [id number] Pepe Nieves MD DATE OF VISIT: 01/13/2021 The FEV1/FVC ratio is normal at 70% with an FVC normal at 81%. The FEV1 is also normal at 81%. The FEF 25-75 is also normal at 78%. After the administration of a bronchodilator, there is no significant increase in any of these values. The patient's FEV1 is noted to be 2.33 liters, this does not increase after the administration of a bronchodilator. The patient's flow volume loop, however, is concave upwards. The total lung capacity is normal at 90% with residual volume was close to the upper limit of normal rate in the range of 114%. The DLCO as adjusted for hemoglobin is decreased to 64%. IMPRESSION: 1. The spirometry is normal; however, the possibility of underlying obstructive lung disease is still raised, considering that the flow volume loop is concave upwards and the residual volume is close to the upper limit of normal range at 114%. 2. The lung volumes are normal, but the residual volume is close to the upper limit of normal range at 114%. 3. The DLCO as adjusted for hemoglobin is decreased to 64%. MD CHIQUITA Hankins/MARTIN <ELECTRONICALLY SIGNED> By: Pepe Nieves MD 01/17/21 0818 2120 0204Aamelia Nieves MD /nt
== END ==
LOC: M.PUL 10-12 09:00
PROVIDERS: ATTEND Internal Medicine Critical Care Medicine
DX: J45.30 Mild persistent asthma, uncomplicated (principal)

== ENCOUNTER → 2021-01-17 | Outpatient (CLI) | payer MEDICARE, OTHER | LOC: M.WC 07:42 | PROVIDERS: ATTEND Internal Medicine | DX: S41.111D Laceration without foreign body of right upper arm, subsequent encounter (principal); S41.101D Unspecified open wound of right upper arm, subsequent encounter; T79.8XXD Other early complications of trauma, subsequent encounter; E11.40 Type 2 diabetes mellitus with diabetic neuropathy, unspecified; E78.5 Hyperlipidemia, unspecified; G47.00 Insomnia, unspecified; I10 Essential (primary) hypertension; I48.91 Unspecified atrial fibrillation; I87.2 Venous insufficiency (chronic) (peripheral); J44.9 Chronic obstructive pulmonary disease, unspecified; K21.9 Gastro-esophageal reflux disease without esophagitis; M48.061 Spinal stenosis, lumbar region without neurogenic claudication; M19.90 Unspecified osteoarthritis, unspecified site; Z87.891 Personal history of nicotine dependence; W22.8XXD Striking against or struck by other objects, subsequent encounter ==

== ENCOUNTER → 2021-01-21 | Outpatient (CLI) | payer MEDICARE, OTHER | LOC: M.WC 07:38 | PROVIDERS: ATTEND Surgery | DX: S41.111D Laceration without foreign body of right upper arm, subsequent encounter (principal); C50.922 Malignant neoplasm of unspecified site of left male breast; T79.8XXD Other early complications of trauma, subsequent encounter; E11.40 Type 2 diabetes mellitus with diabetic neuropathy, unspecified; E78.5 Hyperlipidemia, unspecified; I10 Essential (primary) hypertension; J44.9 Chronic obstructive pulmonary disease, unspecified; K21.9 Gastro-esophageal reflux disease without esophagitis; M19.90 Unspecified osteoarthritis, unspecified site; M48.061 Spinal stenosis, lumbar region without neurogenic claudication; I48.91 Unspecified atrial fibrillation; G47.00 Insomnia, unspecified; Z87.891 Personal history of nicotine dependence; X58.XXXD Exposure to other specified factors, subsequent encounter ==

== ENCOUNTER 2021-01-24 10:56 | Emergency (ER) | payer MEDICARE, OTHER ==
[~2021-01-24] VITALS: Ht 185.4 cm; Wt 104.3 kg
[2021-01-24 11:18] LABS: ABSOLUTE BASOPHILS 0.1 thou/uL (0.0-0.2); ABSOLUTE EOSINOPHILS 0.1 thou/uL (0.0-0.7); ABSOLUTE LYMPHOCYTES 0.7 thou/uL (0.8-5.3); ABSOLUTE MONOCYTES 0.3 thou/uL (0.0-1.2); EOSINOPHILS 1.1 %; HEMATOCRIT 41.6 % (42.0-52.0); HEMOGLOBIN 14.2 gm/dL (14.0-18.0); LYMPHOCYTES 9.3 %; MCHC 34.1 g/dL (28.0-37.0); MONOCYTES 4.8 %; MPV 6.7 fl. (7.2-11.1); NUCLEATED RBCS 0 /100WBC; PLATELET COUNT* 122 thou/uL (150-400); POLYS 83.8 %; RBC 4.72 mil/uL (4.50-6.00); RDW-CV 14.5 % (10.5-14.5); WBC 7.1 thou/uL (4.0-11.0)
[2021-01-24 11:27] LABS: CALCIUM 8.5 mg/dL (8.5-10.1); CREATININE 0.8 mg/dL (0.6-1.3); POTASSIUM 4.2 mmol/L (3.5-5.1)
[2021-01-24 11:37] LABS: ALBUMIN 3.6 g/dL (3.4-5.0); MAGNESIUM 1.9 mg/dL (1.8-2.4); TOTAL BILIRUBIN 0.8 mg/dL (<0.1-1.0); TOTAL PROTEIN 7.1 g/dL (6.4-8.2)
[2021-01-24] MEDS ORDERED: PREDNISONE50 MG PO (13:20)
[2021-01-24] MEDS ORDERED: ZPAK PO (13:20)
[2021-01-24 13:37] LABS: INR 1.9; PROTIME 19.7 Seconds (9.20-11.50)
[2021-01-24 14:14] VITALS: BP 177/99
--- NOTE | 2021-01-25 12:08 | EKG ---
[place] [address] ELECTROCARDIOGRAM REPORT Name: TENDAVIN Andersen Room: [facility]#: [id number] Admission: 01/24/21 Attend Phys: Discharge: 01/24/21 Date of : 32 Date of Service: 01/24/21 1101 Report #: [id number] THIS REPORT FOR: //name// [facility] ED Test Date: 2021-01-24 Test Time: 11:01:45 Pat Name: DAVIN CAAL Department: Room: Gender: Bumper And Painter: [place] : 1930 Requested By: Javier Kimble Order Number: [id number] MD: David Manning Measurements Intervals [place] Rate: 72 P: [place]: QRS: 28 QRSD: 139 T: 16 QT: 388 QTc: 425 Interpretive Statements Atrial fibrillation Right bundle branch block Baseline wander in lead(s) V4,V5 Compared to ECG 12/31/2020 13:15:30 No significant changes Electronically Signed On 01-25-2021 12:08:16 CDT by David Manning [email or web address] <ELECTRONICALLY SIGNED> By: David Manning MD, FACC 01/25/21 1208 1101 1101 David Manning MD, [facility] /EPI
== END 2021-01-24 14:15 | disposition home or self-care (01) ==
LOC: M.ERS 10:56
PROVIDERS: Emergency Medicine Emergency Medical Services
DX: J44.9 Chronic obstructive pulmonary disease, unspecified (principal); I10 Essential (primary) hypertension; K21.9 Gastro-esophageal reflux disease without esophagitis; I48.91 Unspecified atrial fibrillation; E11.9 Type 2 diabetes mellitus without complications; Z87.891 Personal history of nicotine dependence; Z88.0 Allergy status to penicillin; Z88.1 Allergy status to other antibiotic agents; Z79.01 Long term (current) use of anticoagulants; Z79.899 Other long term (current) drug therapy; Z90.49 Acquired absence of other specified parts of digestive tract

== ENCOUNTER 2021-01-30 07:51 | Emergency (ER) | payer MEDICARE, OTHER ==
[~2021-01-30] VITALS: Ht 185.4 cm; Wt 104.3 kg
[2021-01-30 08:21] LABS: ABSOLUTE BASOPHILS 0.1 thou/uL (0.0-0.2); ABSOLUTE EOSINOPHILS 0.1 thou/uL (0.0-0.7); ABSOLUTE LYMPHOCYTES 1.2 thou/uL (0.8-5.3); ABSOLUTE MONOCYTES 0.5 thou/uL (0.0-1.2); ABSOLUTE NEUTROPHILS 6.1 thou/uL (1.6-8.1); BASOPHILS 0.6 %; EOSINOPHILS 1.2 %; HEMATOCRIT 43.4 % (42.0-52.0); HEMOGLOBIN 14.7 gm/dL (14.0-18.0); LYMPHOCYTES 14.8 %; MCH 29.5 pg (26.0-34.0); MONOCYTES 6.6 %; MPV 6.7 fl. (7.2-11.1); NUCLEATED RBCS 0 /100WBC; PLATELET COUNT* 163 thou/uL (150-400); POLYS 76.8 %; RBC 4.99 mil/uL (4.50-6.00); RDW-CV 14.7 % (10.5-14.5)
[2021-01-30 08:33] LABS: CALCIUM 8.6 mg/dL (8.5-10.1); CREATININE 0.8 mg/dL (0.6-1.3)
[2021-01-30 08:40] LABS: APTT 31.3 Seconds (25.0-31.3); PROTIME 20.3 Seconds (9.20-11.50)
[2021-01-30 08:43] LABS: ALBUMIN 3.8 g/dL (3.4-5.0); MAGNESIUM 2.2 mg/dL (1.8-2.4); TOTAL BILIRUBIN 0.8 mg/dL (<0.1-1.0)
[2021-01-30] MEDS ORDERED: NYSTATIN100000 UNI SW&SWALLOW (08:58)
[2021-01-30 09:18] VITALS: BP 167/95
--- NOTE | 2021-01-31 13:50 | EKG ---
[place] [address] ELECTROCARDIOGRAM REPORT Name: CAALDAVIN Nathaly Room: [facility]#: [id number] Admission: 01/30/21 Attend Phys: Discharge: 01/30/21 Date of : 32 Date of Service: 01/30/21805 Report #: [id number] THIS REPORT FOR: //name// [facility] ED Test Date: 2021-01-30 Test Time: 08:06:48 Pat Name: DAVIN CAAL Department: Room: Gender: Colorist Dyer: [facility] : 1930 Requested By: Jeffrey Sanders Order Number: [id number] MD: Otoniel Serna Measurements Intervals [place] Rate: 77 P: [place]: QRS: 53 QRSD: 139 T: 36 QT: 389 QTc: 441 Interpretive Statements Atrial fibrillation Right bundle branch block Compared to ECG 01/24/2021 11:01:45 No significant changes Electronically Signed On 01-31-2021 13:50:07 CDT by Otoniel Serna [email or web address] <ELECTRONICALLY SIGNED> By: Otoniel Serna MD, [facility] 01/31/21 1350 0806 08 Otoniel Serna MD, [facility] /EPI
== END 2021-01-30 09:18 | disposition home or self-care (01) ==
LOC: M.ERS 07:51
PROVIDERS: Family Medicine
DX: I10 Essential (primary) hypertension (principal); B37.0 Candidal stomatitis; J44.9 Chronic obstructive pulmonary disease, unspecified; K21.9 Gastro-esophageal reflux disease without esophagitis; I48.91 Unspecified atrial fibrillation; E78.5 Hyperlipidemia, unspecified; E11.9 Type 2 diabetes mellitus without complications; Z88.0 Allergy status to penicillin; Z88.1 Allergy status to other antibiotic agents; Z87.891 Personal history of nicotine dependence; Z79.899 Other long term (current) drug therapy

== ENCOUNTER → 2021-01-31 | Outpatient (CLI) | payer MEDICARE, OTHER ==
[~2021-01-31] MED LIST changes: +NYSTATIN100000 UNI SW&SWALLOW
== END ==
LOC: M.WC 07:46
PROVIDERS: ATTEND Surgery
DX: S41.111D Laceration without foreign body of right upper arm, subsequent encounter (principal); S41.101D Unspecified open wound of right upper arm, subsequent encounter; T79.8XXD Other early complications of trauma, subsequent encounter; E11.40 Type 2 diabetes mellitus with diabetic neuropathy, unspecified; E78.5 Hyperlipidemia, unspecified; G47.00 Insomnia, unspecified; I10 Essential (primary) hypertension; I48.91 Unspecified atrial fibrillation; I87.2 Venous insufficiency (chronic) (peripheral); J44.9 Chronic obstructive pulmonary disease, unspecified; K21.9 Gastro-esophageal reflux disease without esophagitis; M48.061 Spinal stenosis, lumbar region without neurogenic claudication; M19.90 Unspecified osteoarthritis, unspecified site; Z87.891 Personal history of nicotine dependence; W22.8XXD Striking against or struck by other objects, subsequent encounter

== ENCOUNTER → 2021-02-07 | Outpatient (CLI) | payer MEDICARE, OTHER | LOC: M.WC 07:37 | PROVIDERS: ATTEND Surgery | DX: S41.111D Laceration without foreign body of right upper arm, subsequent encounter (principal); S41.101D Unspecified open wound of right upper arm, subsequent encounter; T79.8XXD Other early complications of trauma, subsequent encounter; E11.40 Type 2 diabetes mellitus with diabetic neuropathy, unspecified; E78.5 Hyperlipidemia, unspecified; G47.00 Insomnia, unspecified; I10 Essential (primary) hypertension; I48.91 Unspecified atrial fibrillation; I87.2 Venous insufficiency (chronic) (peripheral); J44.9 Chronic obstructive pulmonary disease, unspecified; K21.9 Gastro-esophageal reflux disease without esophagitis; M48.061 Spinal stenosis, lumbar region without neurogenic claudication; M19.90 Unspecified osteoarthritis, unspecified site; Z87.891 Personal history of nicotine dependence; W22.8XXD Striking against or struck by other objects, subsequent encounter ==

== ENCOUNTER → 2021-02-14 | Outpatient (CLI) | payer MEDICARE, OTHER | LOC: M.WC 07:36 | PROVIDERS: ATTEND Surgery | DX: S41.111D Laceration without foreign body of right upper arm, subsequent encounter (principal); S41.101D Unspecified open wound of right upper arm, subsequent encounter; T79.8XXD Other early complications of trauma, subsequent encounter; E11.40 Type 2 diabetes mellitus with diabetic neuropathy, unspecified; E78.5 Hyperlipidemia, unspecified; G47.00 Insomnia, unspecified; I10 Essential (primary) hypertension; I48.91 Unspecified atrial fibrillation; I87.2 Venous insufficiency (chronic) (peripheral); J44.9 Chronic obstructive pulmonary disease, unspecified; K21.9 Gastro-esophageal reflux disease without esophagitis; M48.061 Spinal stenosis, lumbar region without neurogenic claudication; M19.90 Unspecified osteoarthritis, unspecified site; Z87.891 Personal history of nicotine dependence; W22.8XXD Striking against or struck by other objects, subsequent encounter ==

== ENCOUNTER → 2021-02-21 | Outpatient (CLI) | payer MEDICARE, OTHER | LOC: M.WC 07:30 | PROVIDERS: ATTEND Surgery | DX: S41.111D Laceration without foreign body of right upper arm, subsequent encounter (principal); S41.101D Unspecified open wound of right upper arm, subsequent encounter; T79.8XXD Other early complications of trauma, subsequent encounter; E11.40 Type 2 diabetes mellitus with diabetic neuropathy, unspecified; E78.5 Hyperlipidemia, unspecified; G47.00 Insomnia, unspecified; I10 Essential (primary) hypertension; I48.91 Unspecified atrial fibrillation; I87.2 Venous insufficiency (chronic) (peripheral); J44.9 Chronic obstructive pulmonary disease, unspecified; K21.9 Gastro-esophageal reflux disease without esophagitis; M48.061 Spinal stenosis, lumbar region without neurogenic claudication; M19.90 Unspecified osteoarthritis, unspecified site; Z87.891 Personal history of nicotine dependence; W22.8XXD Striking against or struck by other objects, subsequent encounter ==

== ENCOUNTER → 2021-02-25 | Outpatient (CLI) | payer MEDICARE, OTHER | LOC: M.WC 07:38 | PROVIDERS: ATTEND Family Medicine | DX: S41.111D Laceration without foreign body of right upper arm, subsequent encounter (principal); S41.101D Unspecified open wound of right upper arm, subsequent encounter; T79.8XXD Other early complications of trauma, subsequent encounter; E11.40 Type 2 diabetes mellitus with diabetic neuropathy, unspecified; E78.5 Hyperlipidemia, unspecified; G47.00 Insomnia, unspecified; I10 Essential (primary) hypertension; I48.91 Unspecified atrial fibrillation; I87.2 Venous insufficiency (chronic) (peripheral); J44.9 Chronic obstructive pulmonary disease, unspecified; K21.9 Gastro-esophageal reflux disease without esophagitis; M48.061 Spinal stenosis, lumbar region without neurogenic claudication; M19.90 Unspecified osteoarthritis, unspecified site; Z87.891 Personal history of nicotine dependence; W22.8XXD Striking against or struck by other objects, subsequent encounter ==

== ENCOUNTER → 2021-03-04 | Outpatient (CLI) | payer MEDICARE, OTHER | LOC: M.WC 03-01 08:00 | PROVIDERS: ATTEND Family Medicine | DX: S41.111D Laceration without foreign body of right upper arm, subsequent encounter (principal); E78.5 Hyperlipidemia, unspecified; E11.40 Type 2 diabetes mellitus with diabetic neuropathy, unspecified; I10 Essential (primary) hypertension; I48.91 Unspecified atrial fibrillation; J44.9 Chronic obstructive pulmonary disease, unspecified; K21.9 Gastro-esophageal reflux disease without esophagitis; G47.00 Insomnia, unspecified; M48.061 Spinal stenosis, lumbar region without neurogenic claudication; M19.90 Unspecified osteoarthritis, unspecified site; Z87.891 Personal history of nicotine dependence; Z98.890 Other specified postprocedural states; Z79.01 Long term (current) use of anticoagulants; Z79.899 Other long term (current) drug therapy; W22.01XD Walked into wall, subsequent encounter ==

== ENCOUNTER → 2021-03-11 | Outpatient (CLI) | payer MEDICARE, OTHER | LOC: M.WC 07:39 | PROVIDERS: ATTEND Family Medicine | DX: S41.111D Laceration without foreign body of right upper arm, subsequent encounter (principal); E11.40 Type 2 diabetes mellitus with diabetic neuropathy, unspecified; E78.5 Hyperlipidemia, unspecified; I10 Essential (primary) hypertension; I48.91 Unspecified atrial fibrillation; J44.9 Chronic obstructive pulmonary disease, unspecified; K21.9 Gastro-esophageal reflux disease without esophagitis; M19.90 Unspecified osteoarthritis, unspecified site; M48.061 Spinal stenosis, lumbar region without neurogenic claudication; G47.00 Insomnia, unspecified; Z87.891 Personal history of nicotine dependence; Z98.890 Other specified postprocedural states; Z79.01 Long term (current) use of anticoagulants; Z79.899 Other long term (current) drug therapy; W22.01XD Walked into wall, subsequent encounter ==

== ENCOUNTER → 2021-03-18 | Outpatient (CLI) | payer MEDICARE, OTHER | LOC: M.WC 07:48 | PROVIDERS: ATTEND Family Medicine | DX: S41.111D Laceration without foreign body of right upper arm, subsequent encounter (principal); S41.101D Unspecified open wound of right upper arm, subsequent encounter; T79.8XXD Other early complications of trauma, subsequent encounter; E11.40 Type 2 diabetes mellitus with diabetic neuropathy, unspecified; E78.5 Hyperlipidemia, unspecified; I10 Essential (primary) hypertension; I48.91 Unspecified atrial fibrillation; J44.9 Chronic obstructive pulmonary disease, unspecified; K21.9 Gastro-esophageal reflux disease without esophagitis; M19.90 Unspecified osteoarthritis, unspecified site; M48.061 Spinal stenosis, lumbar region without neurogenic claudication; G47.00 Insomnia, unspecified; Z87.891 Personal history of nicotine dependence; W22.8XXD Striking against or struck by other objects, subsequent encounter ==

== ENCOUNTER 2021-03-30 09:39 | Emergency (ER) | payer MEDICARE, OTHER ==
[~2021-03-30] VITALS: Ht 185.4 cm; Wt 103.9 kg
[~2021-03-30 09:39] MED LIST changes: -COQ-1030 MG; +COQ-1030 MG PO
[2021-03-30] MEDS ORDERED: DOXYCYCLINE 10100 MG PO (11:13)
[2021-03-30 11:28] VITALS: BP 119/90
[2021-04-03] MEDS ORDERED: OSTEO BI-FLEX1 EAC1 PO (09:37)
[2021-04-03] MEDS ORDERED: FLOMAX0.4 MG PO (09:38)
[2021-04-03] MEDS ORDERED: B-12500 MCG PO (09:39)
== END 2021-03-30 11:28 | disposition home or self-care (01) ==
LOC: M.ERS 09:39
DX: L03.115 Cellulitis of right lower limb (principal); Z20.822 Contact with and (suspected) exposure to COVID-19; J44.9 Chronic obstructive pulmonary disease, unspecified; I10 Essential (primary) hypertension; I48.91 Unspecified atrial fibrillation; E11.9 Type 2 diabetes mellitus without complications; Z87.891 Personal history of nicotine dependence; Z79.899 Other long term (current) drug therapy; Z88.0 Allergy status to penicillin; Z88.1 Allergy status to other antibiotic agents; Z79.01 Long term (current) use of anticoagulants; Z95.5 Presence of coronary angioplasty implant and graft